=== PATIENT | male | born 1955 | race Caucasian/White ===

== ENCOUNTER 2022-11-09 08:06 | Outpatient (OUT) | payer MEDICARE, SELFPAY | END 2022-11-09 08:07 | LOC: LAB 08:11 | PROVIDERS: PCP Internal Medicine | DX: N40.1 Benign prostatic hyperplasia with lower urinary tract symptoms (principal) | CPT/HCPCS: 36415; 84153 ==

== ENCOUNTER 2023-12-06 08:13 | Outpatient (OUT) | payer MEDICARE, SELFPAY ==
[2023-12-06 10:11] LABS: Prostate Specific Antigen Dx 3.78 ng/mL (<=4.00)
== END 2023-12-06 08:14 | disposition home or self-care (01) ==
LOC: LAB 08:15
PROVIDERS: PCP Internal Medicine; Visit Provider Urology
DX: R97.20 Elevated prostate specific antigen [PSA] (principal)
CPT/HCPCS: 36415; 84153

== ENCOUNTER 2024-02-17 11:52 | Outpatient (OUT) | payer MEDICARE, SELFPAY ==
--- NOTE | 2024-02-17 12:08 | XR_ITS ---
[facility] [place] [id number] Patient Name: TAY BEAVERS MRN: [id number] date: 1955 Sex: M Assigned Patient Location: [facility] Current Patient Location: Accession/Order Number: [id number] Exam Date: 02/17/2024 12:02 Report Date: 02/18/2024 09:31 At the request of: MARILOU BEE Procedure: XR lumbar spine 2-3V EXAMINATION: XR lumbar spine 2-3V HISTORY: subacute right lumbar radiculopathy M54.16 COMPARISON: No relevant comparison available. FINDINGS: BONES: 4 mm anterolisthesis of L4 and L5. Moderate to severe degenerative spondylosis and facet osteoarthropathy DISC SPACES: Altered level disc space narrowing with endplate sclerosis and vacuum disks PARASPINOUS: Negative. No paraspinous abnormality is seen. OTHER: Vascular calcifications. Left mid abdominal calcifications, nonspecific XR/XR lumbar spine 2-3V IMPRESSION: Moderate to severe diffuse degenerative changes Electronically authenticated by: DALLIN WHITAKER Date: 02/18/2024 09:31
== END 2024-02-17 11:53 | disposition home or self-care (01) ==
LOC: RAD 11:54
PROVIDERS: PCP Internal Medicine; Visit Provider Internal Medicine
DX: M54.16 Radiculopathy, lumbar region (principal); M43.16 Spondylolisthesis, lumbar region; M51.36 Other intervertebral disc degeneration, lumbar region
CPT/HCPCS: 72100

== ENCOUNTER 2024-06-02 09:17 | Outpatient (OUT) | payer MEDICARE, SELFPAY ==
--- OUTSIDE RECORDS SUMMARY | 2024-06-02 09:37 | XMS_ITS | CCD ---
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 Name Role Phone JACQUELYN ROBERTS Admitting Unavailable JACQUELYN ROBERTS Attending Unavailable ROHIT, DR ZAMARRIPA Primary Care Unavailable KIERAN, DR ROLA Perera Consulting Unavailable JACQUELYN ROBERTS Consulting Unavailable HARDY RECIO, DR SENDY Peñaloza Admitting Unavailmirian DASH JR, DR SENDY Peñaloza Attending Unavailmirian MALIK, DR ZAMARRIPA Primary Care Unavailable HARDY RECIO, DR SENDY Peñaloza Consulting UnavailLUCIO Dennis Primary Care Physician [phone] Negrita Ventura Attending Unavailable JuneeNegrita Admitting Unavailable LueNegrita Attending Unavailable Negrita Ventura Referring Unavailable JuneeNegrita MDayami Admitting Unavailable Negrita Ventura Attending Unavailable Negrita Ventura Referring Unavailable JuneeNegrita MDayami Attending Unavailable Negrita Ventura Attending Unavailable Lucio Malik MD Unavailable [phone] Lucio Malik MD Primary Care Provider Christianne Delgado DO Unavailable CALOS MCCARTNEY Attending Unavailable LARSIA GRACE Attending Unavailable LARISA GRACE Attending Unavailable LARISA GRACE Attending Unavailable LARISA GRACE Referring Unavailable LUCIO MALIK Attending Unavailable CHRISTIANNE DELGADO Attending Unavailable LUCIO MALIK Referring Unavailable JACQUELYN ROBERTS Attending Unavailable LARISA GRACE Attending Unavailable LARISA GRACE Referring Unavailable CHRISTIANNE DELGADO Attending Unavailable LUCIO MALIK Referring Unavailable Allergies Allergy Classification Reported Allergen(s) Allergy Type Date of Onset Reaction(s) Facility (1 source) Penicillins Drug allergy (disorder) 3 [facility] (7 sources) Penicillin; Translations: [penicillin] Drug Allergy Unknown (qualifier value) [facility] (18 sources) Penicillin V Drug Allergy 1 Unknown [facility] (18 sources) Penicillins Drug Intolerance 0 Anaphylaxis, Rash, Swelling, Unknown [facility] Medications Current Medications Medication Drug Class(es) Dates Sig (Normalized) Sig (Original) aspirin 81 mg oral tablet (6 sources) Platelet Aggregation Inhibitor, Nonsteroidal Anti-inflammatory Drug Start: 02-09-2019 take 81 mg by mouth once daily aspirin 81 mg, Oral, Daily, Refills(s) 0, Prophylaxis Start Date: 02/09/19 Status: Ordered Start: 02-09-2019 aspirin Refill s(s) 0 Start Date: 02/09/19 Status: Ordered 12 hr buPROPion hydrochloride 150 mg extended release oral tablet (20 sources) Aminoketone Start: 10-28-2023 buPROPion SR ( Wellbutrin SR) 150 MG 12 hr tablet Indications: Depression, unspecified depression type (CMS/HCC) TAKE 1 TABLET DAILY 100 tablet 3 10/28/2023 Active Start: 02-09-2019 take 1 mg by mouth twice daily buPROPion 150 mg ER Tab mg tab(s), Oral, BID, Refills(s) 0 Start Date: 02/09/19 Status: Ordered ciprofloxacin 500 mg oral tablet (1 source) Quinolone Antimicrobial Start: 10-21-2021 take 1 tablet by mouth once daily Cipro 500 mg Tab 500 mg = 1 tab(s), Oral, Daily, Start 1 day prior to procedure, # 2 tab(s), Refills(s) 0, Pharmacy: [facility]/pharmacy #[id number], 177.8, cm, 10/21/21 8:41:00 EDT, Height/Length Dosing, 105.1, kg, 10/21/21 8:41:00 EDT, Weight Dosing Start Date: 10/21/21 Status: Ordered diazePAM 10 mg oral tablet (2 sources) Benzodiazepine Start: 03-26-2023 Valium 10 mg Tab 10 mg = 1 tab(s), Oral, Once, PRN for anxiety, Take 30 minutes prior to procedure, # 1 tab(s), Refills(s) 0, Pharmacy: [facility]/pharmacy #[id number], 177.8, cm, 10/13/23 14:32:00 EDT, Height/Length Dosing, 99.5, kg, 11/18/22 8:07:00 EDT, Weight Dosing Start Date: 03/26/23 Status: Ordered dicyclomine hydrochloride 10 mg oral capsule (20 sources) Anticholinergic Start: 02-08-2024 dicyclomine (Bentyl) 10 MG capsule Indications: Irritable bowel syndrome, unspecified type TAKE 1 CAPSULE THREE TIMES A DAY 270 capsule 02/08/2024 Active Start: 01-11-2023 dicyclomine (B entyl) 10 MG capsule Indications: Irritable bowel syndrome, unspecified type TAKE 1 CAPSULE THREE TIMES A DAY 270 capsule 3 01/11/2023 Active Start: 02-09-2019 take 1 mg by mouth f our times daily dicyclomine 10 mg Cap mg cap(s), Oral, QID, Refills(s) 0 Start Date: 02/09/19 Status: Ordered irbesartan 150 mg oral tablet (20 sources) Angiotensin 2 Receptor Ventura Start: 02-08-2024 irbesartan (Avapro) 150 MG tablet Indications: Benign essential hypertension (CMS/HCC) TAKE 1 TABLET DAILY 90 tablet 02/08/2024 Active Start: 11-17-2022 irbesartan (Av apro) 150 MG tablet Indications: Benign essential hypertension (CMS/HCC) TAKE 1 TABLET DAILY 100 tablet 4 11/17/2022 Active Start: 10-24-2020 take 1 mg by mouth once daily irbesartan 75 mg Tab mg tab(s), Oral, Daily, Refills(s) 0 Start Date: 10/24/20 Status: Ordered 120 actuat mometasone furoate 0.1 mg/actuat metered dose inhaler (6 sources) Corticosteroid Start: 02-09-2019 Asmanex HFA 10 0 mcg/inh inhalation aerosol Inhalation, BID, Refills(s) 0 Start Date: 02/09/19 Status: Ordered Start: 02-09-2019 Asmanex HFA 10 0 mcg/inh inhalation aerosol Inhalation, BID, Refills(s) 0 Start Date: 02/09/19 Status: Ordered omeprazole 40 mg delayed release oral capsule (20 sources) Proton Pump Inhibitor Start: 02-08-2024 omeprazole (PriLOSEC ) [address] capsule Indications: Gastroesophageal reflux disease, unspecified whether esophagitis present TAKE 1 CAPSULE DAILY 90 capsule 02/08/2024 Active Start: 11-17-2022 omeprazole (Pr iLOSEC) [address] capsule Indications: Gastroesophageal reflux disease, unspecified whether esophagitis present TAKE 1 CAPSULE DAILY 100 capsule 4 11/17/2022 Active Start: 02-09-2019 take 40 mg by mouth once daily omeprazole 40 mg, Oral, Daily, Refills(s) 0 Start Date: 02/09/19 Status: Ordered Start: 02-09-2019 omeprazole Ora l, Daily, Refills(s) 0 Start Date: 02/09/19 Status: Ordered One-A-Day Men's Health Formula oral tablet (6 sources) Start: 02-09-2019 take 1 tablet by mouth once daily One-A-Day Men's Health Formula oral tablet tab(s), Oral, Daily, Refill(s) 0 Start Date: 02/09/19 Status: Ordered tamsulosin hydrochloride 0.4 mg oral capsule (20 sources) alpha-Adrenergi c Ventura Start: 02-08-2024 tamsulosin (Flomax) 0.4 MG 24 hr capsule Indications: Benign prostatic hyperplasia with urinary obstruction TAKE 2 CAPSULES ONCE DAILY 180 capsule 02/08/2024 Active Start: 11-18-2022 tamsulosin (Fl omax) 0.4 MG 24 hr capsule Indications: Benign prostatic hyperplasia with urinary obstruction TAKE 2 CAPSULES ONCE DAILY 180 capsule 3 11/18/2022 Active Start: 02-09-2019 take 1 mg by mouth twice daily tamsulosin 0.4 mg Cap mg cap(s), Oral, BID, Refills(s) 0 Start Date: 02/09/19 Status: Ordered Start: 02-09-2019 take 1 mg by mouth once daily tamsulosin 0.4 mg Cap mg cap(s), Oral, Daily, Refills(s) 0 Start Date: 02/09/19 Status: Ordered Completed/Discontinued Medications Medication Drug Class(es) Dates Sig (Normalized) Sig (Original) 1 ml methylPREDNISolone acetate 40 mg/ml injection (4 sources) Corticosteroid Start: 4 End: methylPREDNISolone acetate (DEPO-Medrol) injection 40 mg Start: 04-05-2024 End: 04-05-2024 40 mg, Intra-articular, Once PRN Procedure, Starting on Wed04/05/24 at 0821, For 1 dose Problems Active Problems Problem Classification Problem Date Documented Da te Episodic/Chronic Acquired foot deformities (6 sources) Right foot drop; Translations: [Foot drop, right foot] 04-11-2024 Episodic Chronic obstructive pulmonary disease and bronchiectasis (18 sources) Chronic obstructive lung disease; Translations: [Chronic obstructive pulmonary disease, unspecified] Onset: 3 11-17-2022 Chronic Diverticulosis and diverticulitis (18 sources) Diverticular disease; Translations: [Diverticulosis of intestine, part unspecified, without perforation or abscess without bleeding] Onset: 3 11-17-2022 Chronic Esophageal disorders (20 sources) Eosinophilic esophagitis; Translations: [Eosinophilic esophagitis] Onset: 3 11-17-2022 Chronic Essential hypertension (20 sources) Hypertensive disorder; Translations: [Benign essential hypertension] Onset: 3 12-06-2018 Chronic Hyperplasia of prostate (20 sources) Benign prostatic hyperplasia with lower urinary tract symptoms; Translations: [Benign prostatic hypertrophy with outflow obstruction] Onset: 2 Chronic Malaise and fatigue (2 sources) Asthenia; Translations: [Weakness] 04-19-2024 Episodic Osteoarthritis (20 sources) Arthritis; Translations: [Arthritis of left acromioclavicular joint] Onset: 3 12-06-2018 Chronic Other connective tissue disease (18 sources) Artificial knee joint present; Translations: [Presence of unspecified artificial knee joint] Onset: 3 11-17-2022 Chronic Other connective tissue disease (20 sources) History of prosthetic unicompartmental arthroplasty of left knee; Translations: [Presence of left artificial knee joint] Onset: 3 11-17-2022 Chronic Other connective tissue disease (4 sources) Trochanteric bursitis of left hip; Translations: [Trochanteric bursitis, left hip] 04-05-2024 Episodic Other connective tissue disease (2 sources) Pain in right foot; Translations: [Pain in right foot] 04-11-2024 Episodic Other diseases of kidney and ureters (3 sources) Urinary tract obstruction; Translations: [Other obstructive and reflux uropathy] Onset: 2 Episodic Other gastrointestinal disorders (18 sources) Irritable bowel syndrome; Translations: [Irritable bowel syndrome without diarrhea] Onset: 3 11-17-2022 Chronic Other male genital disorders (2 sources) Impotence 04-28-2023 Chronic Other male genital disorders (1 source) Hydrocele of testis; Translations: [Hydrocele, unspecified] Onset: 4 Episodic Other male genital disorders (1 source) Disorder of male genital organ 12-08-2023 Episodic Other nervous system disorders (4 sources) Polyneuropathy; Translations: [Polyneuropathy, unspecified] 03-24-2024 Chronic Other nervous system disorders (1 source) Idiopathic peripheral neuropathy; Translations: [Hereditary and idiopathic neuropathy, unspecified] 02-23-2024 Chronic Other nervous system disorders (3 sources) Numbness and tingling sensation of skin; Translations: [Anesthesia of skin] 04-19-2024 Episodic Other non-traumatic joint disorders (4 sources) Other specific joint derangements of right shoulder, not elsewhere classified; Translations: [OTH SPEC JOINT DERANG RT SHLDR NEC] Onset: 1 Chronic Other non-traumatic joint disorders (18 sources) Derangement of left shoulder joint; Translations: [Other specific joint derangements of left shoulder, not elsewhere classified] Onset: 3 11-17-2022 Chronic Other non-traumatic joint disorders (18 sources) Derangement of right shoulder joint; Translations: [Other specific joint derangements of right shoulder, not elsewhere classified] Onset: 3 11-17-2022 Chronic Other non-traumatic joint disorders (2 sources) Hip pain; Translations: [Pain in left hip] 04-03-2024 Episodic Regional enteritis and ulcerative colitis (18 sources) Chronic ulcerative proctitis; Translations: [Ulcerative (chronic) proctitis without complications] Onset: 3 11-17-2022 Chronic Screening and history of mental health and substance abuse codes (6 sources) Ex-smoker 02-09-2019 Episodic Spondylosis; intervertebral disc disorders; other back problems (18 sources) Lumbar arthritis; Translations: [Spondylosis without myelopathy or radiculopathy, lumbar region] Onset: 06-2011-17-2022 Chronic Spondylosis; intervertebral disc disorders; other back problems (3 sources) Lumbar radiculopathy; Translations: [Radiculopathy, lumbar region] 02-09-2024 Episodic Sprains and strains (2 sources) Unspecified sprain of right lesser toe(s), initial encounter; Translations: [Sprain of foot, unspecified site] 04-11-2024 Episodic Unclassified (5 sources) Finding of sensation of bladder 11-18-2022 Unclassified (2 sources) Patient encounter status 04-28-2023 Past or Other Problems Problem Classification Problem Date Documented Date Episodic/Chronic Calculus of urinary tract (20 sources) Kidney stone; Translations: [Calculus of kidney] Onset: 11-17-2022 12-06-2018 Episodic Esophageal disorders (18 sources) Spastic disorder of smooth muscle segment of esophagus; Translations: [Achalasia of cardia] Onset: 11-17-2022 11-17-2022 Episodic Genitourinary symptoms and ill-defined conditions (20 sources) Poor urinary stream; Translations: [Nocturia] Onset: 10-06-2021 Episodic Mood disorders (18 sources) Mood disorders Onset: 04-02-2023 04-02-2023 Noninfectious gastroenteritis (18 sources) Noninfectious colitis; Translations: [Noninfective gastroenteritis and colitis, unspecified] Onset: 11-17-2022 11-17-2022 Episodic Other acquired deformities (20 sources) Lumbar spondylolisthesis; Translations: [Spondylolisthesis, lumbar region] Onset: 11-17-2022 11-17-2022 Episodic Other connective tissue disease (18 sources) Full thickness rotator cuff tear; Translations: [Complete rotator cuff tear or rupture of right shoulder, not specified as traumatic] Onset: 11-17-2022 11-17-2022 Episodic Other diseases of veins and lymphatics (18 sources) Peripheral venous insufficiency; Translations: [Venous insufficiency (chronic) (peripheral)] Onset: 11-17-2022 11-17-2022 Episodic Other non-epithelial cancer of skin (18 sources) Squamous cell carcinoma of skin of scalp and neck; Translations: [Malignant neoplasm of head, face, and neck] Onset: 11-17-2022 11-17-2022 Episodic Other screening for suspected conditions (not mental disorders or infectious disease) (20 sources) Elevated prostate specific antigen [PSA]; Translations: [Raised prostate specific antigen] Onset: 10-03-2021 Episodic Results Test Name Value Interpretation Reference Range Facility FOLATE, SERUMon 04-25-2024 Folate [Mass/Vol] 19.8 ng/mL Normal [facility] Comment on above: Result Comment: Refe rence Range Low: <3.4 Borderline: 3.4-5.4 Normal: >5.4 Performed By: #### 9 , 89, 747, 466 #### [facility] [place] [address] Supervisor Payroll: Jono Monroe MD PROTEIN, TOTAL AND PROTEIN E LECTROPHORESISon 04-25-2024 Albumin [Mass/Vol] 4.0 g/dL Normal 3.8-4.8 [facility] Comment on above: Order Comment: FASTI NG:NO FASTING: NO Performed By: #### 9 , 43, 157, 466 #### [facility] [place] [address] Supervisor Payroll: Jono Monroe MD ALPHA 1 GLOBULIN 0.3 g/dL Normal 0.2-0.3 [facility] Comment on above: Order Comment: FASTI NG:NO FASTING: NO Performed By: #### 9 , 86, 757, 466 #### [facility] [place] [address] Supervisor Payroll: Jono Monroe MD ALPHA 2 GLOBULIN 0.7 g/dL Normal 0.5-0.9 [facility] Comment on above: Order Comment: FASTI NG:NO FASTING: NO Performed By: #### 9 , 92, 997, 466 #### [facility] [place] [address] Supervisor Payroll: Jono Monroe MD BETA 1 GLOBULIN 0.4 g/dL Normal 0.4-0.6 [facility] Comment on above: Order Comment: FASTI NG:NO FASTING: NO Performed By: #### 9 , 06, 737, 466 #### [facility] [place] [address] Supervisor Payroll: Jono Monroe MD BETA 2 GLOBULIN 0.4 g/dL Normal 0.2-0.5 [facility] Comment on above: Order Comment: FASTI NG:NO FASTING: NO Performed By: #### 9 27, 899, 747, 466 #### [facility] [place] [address] Supervisor Payroll: Jono Monroe MD GAMMA GLOBULIN 0.8 g/dL Normal 0.8-1.7 [facility] Comment on above: Order Comment: FASTI NG:NO FASTING: NO Performed By: #### 9 27, 899, 747, 466 #### [facility] [place] [address] Supervisor Payroll: Jono Monroe MD INTERPRETATION Normal [facility] Comment on above: Order Comment: FASTI NG:NO FASTING: NO Result Comment: Norm al Serum Protein Electrophoresis Pattern. No abnormal protein bands (M-protein) detected. Performed By: #### 9 27, 89, 747, 466 #### [facility] [place] [address] Supervisor Payroll: Jono Monroe MD Protein [Mass/Vol] 6.5 g/dL Normal 6.1-8.1 [facility] Comment on above: Order Comment: FASTI NG:NO FASTING: NO Performed By: #### 9 27, 89, 747, 466 #### [facility] [place] [address] Supervisor Payroll: Jono Monroe MD TSHon 04-25-2024 TSH Qn 0.85 m[IU]/L Normal 0.40-4.50 [facility] Comment on above: Performed By: #### 9 27, 899, 747, 466 #### [facility] [place] [address] Supervisor Payroll: Jono Monroe MD VITAMIN B12on 04-25-2024 Cobalamin (Vitamin B12) [Mass/Vol] 427 pg/mL Normal 200-1100 [facility] Comment on above: Performed By: #### 9 67, 179, 831, 466 #### [facility] [address] [place] [address] Supervisor Payroll: Jono Monroe MD XR Foot - right 3 [facility] Result: April 11, 2024 x-rays AP lateral and oblique of the right foot demonstrate intact cortices. No definitive fractures detected. No areas of lysis or lytic appearance. Impression: No acute findings on x-rays of the right foot Leon Grace D.O. [facility] Radiology Study observation (narrative) [facility] Panel Informationon 04-05 Jacquelyn Roberts NP 04/05/2024 8:23 AM L Inj/Asp: L greater trochanteric bursa on 04/05/2024 8:21 AM Indications: pain Details: 20 G needle, lateral approach Medications: 40 mg methylPREDNISolone acetate 40 MG/ML Consent was given by the patient. Immediately prior to procedure a time out was called to verify the correct patient, procedure, equipment, administrative support assistant and site/side marked as required. Patient was prepped and draped in the usual sterile fashion. 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 There is narrowing of the medial compartment of the right knee. Impression: Stable appearance of left knee partial replacement and underlying arthritis of the right knee Leon Grace D.O. [facility] hospital Radiology Study observation (narrative) [facility] Screenson 04-29-2023 Screens [id number] Normal [facility] Screens [id number] 0TIFF Normal [facility] Ambulatory Visit Summaryon 1 06-28-2022 Ambulatory Visit Summary TAY ALLISON :1955 Visit Date:04/28/2023 Ambulatory Visit Instructions Your Diagnosis BPH with urinary obstruction Feeling of incomplete bladder emptying Nocturia Urinary urgency Prostate cancer screening Tests Performed Urnls Dip Stick Auto w/o Microscopy POC 63856 Your Care Team Attending Physician - Negrita Ventura MD Primary Care Physician - LUCIO MALIK MD This Is Your Medications List Contact prescribing physician if questions or concerns aspirin buPROPion (buPROPion 150 mg ER Tab) dicyclomine (dicyclomine 10 mg Cap) irbesartan (irbesartan 75 mg Tab) mometasone (Asmanex HFA 100 mcg/inh inhalation aerosol) multivitamin (One-A-Day Men's Health Formula oral tablet) omeprazole [Image Removed: STOP]Stop taking these medications diazepam (Valium 10 mg Tab) tamsulosin (tamsulosin 0.4 mg Cap) Procedures Performed Transrectal biopsy of prostate using ultrasound (US) guidance (06/28/2017), Colonoscopy, Cystoscopy, Tonsillectomy. Discharge Vitals Blood Pressure 138/82 Height 70 in Height 177.8 cm Weight 218.9 lb Weight 99.5 kg BMI 31.47 What to do next Scheduled Follow-Up Appointments Wednesday 8:00 AM EDT With: Negrita Ventura MD Where: [facility] Patient Educationon 04-28-20 23 Patient Education Oncology Prostate Cancer Screening Prostate cancer screening is testing that is done to check for the presence of prostate cancer in men. The prostate gland is a walnut-sized gland that is located below the bladder and in front of the rectum in males. The function of the prostate is to add fluid to semen during ejaculation. Prostate cancer is one of the most common types of cancer in men. Who should have prostate cancer screening? Screening recommendations vary based on age and other risk factors, as well as between the professional organizations who make the recommendations. In general, screening is recommended if: ? You are age 50 to 70 and have an average risk for prostate cancer. You should talk with your health care provider about your need for screening and how often screening should be done. Because most prostate cancers are slow growing and will not cause , screening in this age group is generally reserved for men who have a 10- to 15-year life expectancy. ? You are younger than age 50, and you have these risk factors: ? Having a father, brother, or uncle who has been diagnosed with prostate cancer. The risk is higher if your family member's cancer occurred at an early age or if you have multiple family members with prostate cancer at an early age. ? Being a male who is Black or is of [place] or sub-Saharan descent. In general, screening is not recommended if: ? You are younger than age 40. ? You are between the ages of 40 and 49 and you have no risk factors. ? You are 70 years of age or older. At this age, the risks that screening can cause are greater than the benefits that it may provide. If you are at high risk for prostate cancer, your health care provider may recommend that you have screenings more often or that you start screening at a younger age. How is screening for prostate cancer done? The recommended prostate cancer screening test is a blood test called the prostate-specific antigen (PSA) test. PSA is a protein that is made in the prostate. As you age, your prostate naturally produces more PSA. Abnormally high PSA levels may be caused by: ? Prostate cancer. ? An enlarged prostate that is not caused by cancer (benign prostatic hyperplasia, or BPH). This condition is very common in older men. ? A prostate gland infection (prostatitis) or urinary tract infection. ? Certain medicines such as male hormones (like testosterone) or other medicines that raise testosterone levels. A rectal exam may be done as part of prostate cancer screening to help provide information about the size of your prostate gland. When a rectal exam is performed, it should be done after the PSA level is drawn to avoid any effect on the results. Depending on the PSA results, you may need more tests, such as: ? A physical exam to check the size of your prostate gland, if not done as part of screening. ? Blood and imaging tests. ? A procedure to remove tissue samples from your prostate gland for testing (biopsy). This is the only way to know for certain if you have prostate cancer. What are the benefits of prostate cancer screening? ? Screening can help to identify cancer at an early stage, before symptoms start and when the cancer can be treated more easily. ? There is a small chance that screening may lower your risk of dying from prostate cancer. The chance is small because prostate cancer is a slow-growing cancer, and most men with prostate cancer from a different cause. What are the risks of prostate cancer screening? The main risk of prostate cancer screening is diagnosing and treating prostate cancer that would never have caused any symptoms or problems. This is called overdiagnosisand overtreatment. PSA screening cannot tell you if your PSA is high due to cancer or a different cause. A prostate biopsy is the only procedure to diagnose prostate cancer. Even the results of a biopsy may not tell you if your cancer needs to be treated. Slow-growing prostate cancer may not need any treatment other than monitoring, so diagnosing and treating it may cause unnecessary stress or other side effects. Questions to ask your health care provider ? When should I start prostate cancer screening? ? What is my risk for prostate cancer? ? How often do I need screening? ? What type of screening tests do I need? ? How do I get my test results? ? What do my results mean? ? Do I need treatment? Where to find more information ? [facility] Cancer Society: www.cancer.org ? [employer]: www.auanet.org Contact a health care provider if: ? You have difficulty urinating. ? You have pain when you urinate or ejaculate. ? You have blood in your urine or semen. ? You have pain in your back or in the area of your prostate. Summary ? Prostate cancer is a common type of cancer in men. The prostate gland is located below the bladder and in front of the rectum. This gland adds flu (more content not included)... Normal [facility] Urology Office/Clinic Noteon 04-28-2023 Urology Office/Clinic Note Chief Complaint S/p to Cysto/ TRUS HPI Staff 68 yo male here for 4wk f/u with PVR. S/p Cysto/TRUS 01/04/23 and UroLift 03/29/23. He states these have been a huge difference Had 20Fr coude catheter placed and irrigated after UroLift procedure due to hematuria. Hamilton removed 03/30/23. PVR today 190 Previous Dx: BPH with obstruction, Feeling of incomplete bladder emptying, nocturia, urinary urgency. PCP is to monitor PSA yearly. Last PSA was 11/09/22- 3.3 Taking Tamsulosin 0.4mg bid. He wants to see if he can come off of this IPSS 7 REINA 13 Dysuria: _denies Incomplete bladder emptying: denies Hematuria: denies visible blood Frequency: mornings every 45 minutes, rest of day about every hour Urgency: denies Nocturia: 2x nightly Stream: denies hesitation, normal stream Leaking: _denies Post void dripping: occasionally Wearing pads/ Depends: pad today just for security Urge incontinence: _denies Stress incontinence: denies Incontinence without Sensory Awareness: denies Abdominal pain: denies Flank pain: denies Sexual complaints: denies History of Present Illness Tests reviewed: reviewed UA and PVR. I have reviewed the previous health record information and history for this patient from . I have reviewed and verified the staff HPI to be accurate for this encounter. There have been no associated fever, chills, flank pain, or blood in the urine. Denies any urinary infections since last encounter. Review of Systems PHQ Score Initial Depression Screen Score: 0 SCORE ROS - Provider Constitutional: denies weight loss, denies hot flashes. Eyes: denies eye problems. Gastrointestinal: denies nausea, denies vomiting. Cardiovascular: denies chest pain or angina. Integumentary: no dryness Musculoskeletal: denies musculoskeletal symptoms. ENMT: denies otolaryngeal symptoms. Respiratory: no shortness of breath. Heme/Lymph: denies easy bleeding tendency, denies easy bruising tendency. Psychiatric: no confusion, no anxiety. Genitourinary: See HPI. Physical Exam Vitals & Measurements BP: 138/82 HT: 70 in HT: 177.8 cm WT: 99.5 kg WT: 218.9 lb BMI: 31.47 General Appearance: alert, no distress, well nourished, well developed male. Assessment/Plan 68-year-old male with benign prostatic hyperplasia and bothersome voiding symptoms including obstruction and nocturia here for follow up after Urolift REINA 13(11) - declined tx at this time 1. BPH with urinary obstruction (N40.1: Benign prostatic hyperplasia with lower urinary tract symptoms) S/P TRUS/bx done 06/28/17 - Negative S/p Cysto/TRUS 01/04/23 - Prostate volume 89.2mL UroLift 03/29/23 - 9 implants He states these have been a huge difference, had 20Fr coude catheter placed and irrigated after UroLift procedure due to hematuria. Hamilton removed 03/30/23. IPSS 7(23), QOL 1- pleased UA today shows trace-intact blood and no signs of infections. Overall very happy with results . Currently taking Flomax 0.4mg BID and is doing well overall w/ his urination. Advised pt that he can try to stop taking one tab of the Tamsulosin, and see how he feels for 1-2 weeks and then d/c the second pill. Advised pt that if he feels his urinary sxs returning, then he can start taking the Tamsulosin again. -Timed voiding -Wean off of the Tamsulosin. -Follow up with PVR in 6 mths 2. Feeling of incomplete bladder emptying (R39.14: Feeling of incomplete bladder emptying) PVR 190 (234 ml) Advised pt that he is still not emptying completely but improving. Pt states that he waits about 1-2 hours in the afternoon, more often in the morning when he drinks coffee. Feels emptying, asymptomatically improved -timed voids 3. Nocturia (R35.1: Nocturia) Pt gets up 2x/night Denies lower ext edema or CAMILO Pt states that his nocturia has improved since his UroLift and he is happy with the results. -Cont behavioral modifications 4. Urinary urgency (R39.15: Urgency of urination) Pt states that he voids about every 1-2 hours and his urgency has resolved since his UroLift. 5. Prostate cancer screening (Z12.5: Encounter for screening for malignant neoplasm of prostate) PSA 12/14/18 - 3.62 10/17/19 - 3.07 10/08/20 - 2.93 10/03/21 - 2.69 11/09/22 - 3.30 Pt states that DLS was the one who monitored his PSA. Advised pt that we could continue to check his PSA and if the next PSA is stable then we will have his PCP monitor it. Follow up in 8 mos w/PSA. All questions/concerns were discussed. Pt to call the office if he encounters any issues prior. Pt acknowledges understanding. -Will order PSA I spent 30 minutes today with the patient: reviewing tests in preparation to see and discuss them with the patient, documenting clinical information in the electronic health records, and care coordination. Time was spent performing a medical exam and evaluation, counseling and educating the patient, and ordering medications, tests in caring for the patient. Follow-up With When (more content not included)... [facility] Comment on above: Result Comment: Elec tronically Signed By: Negrita Ventura MD\.br\Date and Time Signed: 04/28/23 10:42 EST\.br\Electronically Co-Signed By: Mary Yi\.br\Date and Time Co-Signed: 04/28/23 10:02 EST Ambulatory Visit Summaryon 1 Ambulatory Visit Summary TAY ALLISON :1955 Visit Date:03/30/2023 Ambulatory Visit Instructions Your Care Team Attending Physician - Negrita Ventura MD Primary Care Physician - LUCIO MALIK MD This Is Your Medications List aspirin buPROPion (buPROPion 150 mg ER Tab) diazepam (Valium 10 mg Tab) dicyclomine (dicyclomine 10 mg Cap) irbesartan (irbesartan 75 mg Tab) mometasone (Asmanex HFA 100 mcg/inh inhalation aerosol) multivitamin (One-A-Day Men's Health Formula oral tablet) omeprazole tamsulosin (tamsulosin 0.4 mg Cap) Procedures Performed Transrectal biopsy of prostate using ultrasound (US) guidance (06/28/2017), Colonoscopy, Tonsillectomy. What to do next Scheduled Follow-Up Appointments Wednesday 9:30 AM EST With: Negrita Ventura MD Where: [facility] Consent for Procedure/Surger yon 03-29-2023 Consent for Procedure/Surgery [id number]. [id number] [facility] Consent for Treatmenton 03-02 Consent for Treatment [id number] 0TIFF Normal [facility] Inpatient Patient Summaryon 03-29-2023 Inpatient Patient Summary [address] [address] Clinical Summary Person Information Name: TAY ALLISON Age: 68 Years : 1955 Sex: Male PCP: LUCIO MALIK MD Marital Status: Race: White Ethnicity: Non- or Language: Gambian Visit Id: Visit Reason: BPH WITH LUTS Speciality: Acuity: Enc Type: Outpatient Med Service: Surgery Arrival: 03/29/2023 07:36:05 Discharge: Dispo Type: Address: [address] [place] [address] [address] [place] [id number] Provider Notes: Diagnosis: BPH with urinary obstruction; Feeling of incomplete bladder emptying; Nocturia; Other obstructive and reflux uropathy Problems Active Feeling of incomplete bladder emptying Urinary urgency Elevated PSA Nocturia BPH with urinary obstruction Former smoker Nephrolithiasis Hypertension Arthritis Microscopic hematuria Smoking Status: Functional Status: Sensory Deficits: History of Falls: Mobility Assistance Prior to Admission: ADLs: Current Level of Assistance for Self-Care/Mobility: Cognitive Status: Allergies penicillin (Unknown) Laboratory or Other Results This Visit (last charted value for your 03/29/2023 visit) No Laboratory or Other Results This Visit Measurements: Height: 177.8 cm Weight: Blood Pressure: Not Valued / Not Valued BMI: Procedures No Procedures Documented Immunizations No Immunizations Documented This Visit Final Med List: acetaminophen-hydrocod one ([place] 325 mg-5 mg oral tablet) 1 Tablets By Mouth every 6 hours as needed for pain for 3 Days. For severe pain. Take 1 tablet 1 hour prior to procedure. Refills: 0. aspirin 81 Milligram By Mouth every day. buPROPion (buPROPion 150 mg ER Tab) By Mouth 2 times a day. diazepam (Valium 10 mg Tab) 1 Tablets By Mouth Once as needed for anxiety. Take 30 minutes prior to procedure. Refills: 0. dicyclomine (dicyclomine 10 mg Cap) By Mouth 4 times a day. irbesartan (irbesartan 75 mg Tab) By Mouth every day. mometasone (Asmanex HFA 100 mcg/inh inhalation aerosol) Inhalation 2 times a day. multivitamin (One-A-Day Men's Health Formula oral tablet) By Mouth every day. omeprazole 40 Milligram By Mouth every day. tamsulosin (tamsulosin 0.4 mg Cap) By Mouth 2 times a day. Care Team Members: Attending Physician: Negrita Ventura MD Consulting Physician: Referring Physician: Negrita Ventura MD Follow up: With: Address: When: Negrita Ventura [address], [address], [employer] [address] [phone] Business (1) Comments: Office will call to schedule follow up in 1-2 days for hamilton removal and voiding trial Patient Education Information: Lue - Urolift Post-Op Instructions (CUSTOM) [facility] IntraOperative Documentson 1 IntraOperative Documents [id number]. [id number] [facility] Main OR Intraoperative Recor don 03-29-2023 Main OR Intraoperative Record IntraOp Document Type FTURO Summary Primary Physician: Negrita Ventura MD Finalized Date/Time: 03/29/23 08:59:57 Pt. Name: TAY ALLISON Anabela Ledesma/Sex: 1955 Male Med Rec #: [id number] Physician: Negrita Ventura MD Financial #: [id number] Pt. Type: O Room/Bed: / Admit/Disch: 03/29/23 07:36:05 - Institution: Case Times FTURO Entry 1 Patient Times In Room 03/29/23 08:13:00 Out Room 03/29/23 08:45:00 Procedure Times Start 03/29/23 08:17:00 Stop 03/29/23 08:37:00 Anesthesia Times Last Modified By: Rosmery Long RN 03/29/23 08:55:34 General Comments: 20F COUDE CATH PLACED. EVANGELINA VILLEGAS Case Attendance FTURO Entry 1 Entry 2 Entry 3 Case Attendee Negrita Ventrua MD, CST, Kimberly A Ethan RN, Rosmery Sims Role Performed Surgeon - Primary Scrub - Primary Civil Drafter - Primary Time In 03/29/23 08:13:00 03/29/23 08:13:00 03/29/23 08:13:00 Time Out 03/29/23 08:45:00 03/29/23 08:45:00 03/29/23 08:45:00 Procedure CYSTOSCOPY LOCAL CYSTOSCOPY LOCAL CYSTOSCOPY LOCAL UROLIFT(.) UROLIFT(.) UROLIFT(.) Comments Last Modified By: Ethan HUTCHINSON, Rosmery Long RN, Rosmery Ya RN 03/29/23 08:55:35 03/29/23 08:55:35 03/29/23 08:55:35 General Comments: MATTHIAS AWAN - UROLIFT REPDayami VILLEGAS RN Surgical Procedures FTURO Entry 1 Procedure Description Procedure CYSTOSCOPY LOCAL UROLIFT Modifiers . Surgeon Description CYSTOSCOPY LOCAL UROLIFT X 9 IMPLANTS Primary Procedure Yes Primary Surgeon Negrita Ventura MD Start 03/29/23 08:17:00 Stop 03/29/23 08:37:00 Anesthesia Type Local Surgical Service Urology Wound Class 2 - Clean-Contaminated Last Modified By: Rosmery Long RN 03/29/23 08:37:31 General Case Data FTURO Pre-Care Text: Classifies surgical wound, implements aseptic technique, initiates traffic control Entry 1 Case Information OR URO 1 FT Case Level None Wound Class 2 - Clean-Contaminated Specialty Urology Preop Diagnosis BPH WITH LUTS Postop Same As Preop Yes Postop Diagnosis BPH WITH LUTS Outcomes Met? Yes Last Modified By: Rosmery Long RN 03/29/23 07:59:05 Post-Care Text: The patient is free from signs and symptoms of infection EU IntraOp - FTURO Pre-Care Text: Implements protective measures prior to operative or invasive procedure, confirms identity before the operative or invasive procedure, verifies operative procedure, surgical site, and laterality Entry 1 EU Perioperative Protocols Procedure(s) CYSTOSCOPY LOCAL Patient Identity Birthday, ID Band UROLIFT(.) Verified (select at Check, Patient least 2): Participation Consents / H and P HandP, Surgery/Procedure Operative Site N/A Verified Consent Marking Verified Surgical Site Yes Laterality Verified Yes Verified Procedure Verified Yes Correct Patient Yes Position Verified Availability Equipment, Implant, Time Out Negrita Ventura MD, Verified (If Medication Participants Rosmery Sarabia CST Applicable) Ethan Moreno RN, Kimberly Y Time Out Complete 03/29/23 08:15:00 Allergies Reviewed? Yes Allergies Reviewed Self/Patient With Body Position Low Lithotomy Prep Area PENIS Prep Agents Betadine Solution Skin. Condition Dry, Warm, Unable to Description UNABLE TO VISUAIIZE DUE Visualize TO PATIENT PARTIALLY CLOTHED Additional None Specimens Collected Vitals - EU Blood Pressure 163/91 Pulse 74 bpm Respirations 18 br/min SPO2 98 % EBL 0 IandO - EU Total Intake 0 mL Total Output 0 mL Outcomes Met? Yes Last Modified By: Rosmery Long RN 03/29/23 08:17:25 Post-Care Text: The patient is free from signs and symptoms of injury caused by extraneous objects Implant Log FTURO Pre-Care Text: Records devices implanted during the operative or invasive procedure Entry 1 Entry 2 Entry 3 Implant/Explant Implant Implant Implant Implant Identification Description UROLIFT 2 SYSTEM UROLIFT 2 SYSTEM UROLIFT 2 SYSTEM Serial Number Lot Number [id number] Application Support Developer [employer]OTRACT NEOTRACT NEOTRACT Catalog ?# [id number] UL2-C Size Expiration Date 12/22/24 10/20/23 11/11/24 Usage Data Implant Site PROSTATE PROSTATE PROSTATE Quantity 1 1 4 Temperature Reconstitution Method Outcomes Met? Yes Yes Yes Last Modified By: Rosmery Long RN, RN, Kimberly Y Barbee RN, Kimberly Y 03/29/23 08:36:53 03/29/23 08:36:53 03/29/23 08:36:53 Entry 4 Entry 5 Entry 6 Implant/Explant Implant Implant Implant Implant Identification Description UROLIFT ATC SYSTEM UROLIFT ATC SYSTEM UROLIFT 2 SYSTEM Serial Number Lot Number [id number] Application Support Developer [employer]OTRA[employer] NEOTRACT NEOTRACT Catalog ?# [id number] UL2-C Size Expiration Date 10/17/23 06/29/23 11/17/24 Usage Data Implant Site PROSTATE PROSTATE PROSTATE Quantity 1 1 1 Temperature Reconstitution Method Outcomes Met? Yes Yes Yes Last Modified By: Rosmery Long RN, RN, Rosmery Long RN (more content not included)... Normal [facility] Main OR Preoperative Recordo n 03-29-2023 Main OR Preoperative Record Holding Area Document Type FTURO Summary Primary Physician: Negrita Ventura MD Finalized Date/Time: 03/29/23 09:03:29 Pt. Name: TAY ALLISON /Sex: 1955 Male Med Rec #: [id number] Physician: Negrita Ventura MD Financial #: [id number] Pt. Type: O Room/Bed: / Admit/Disch: 03/29/23 07:36:05 - Institution: Case Times Holding FTURO Pre-Care Text: Verifies consent for planned procedure, identifies individual values and wishes concerning care, includes family members in perioperative teaching Secures patient's records' belongings, and valuables, maintains patient's dignity and privacy, and maintains patient confidentiality Entry 1 In Holding 03/29/23 07:42:00 Outcomes Met? Yes Last Modified By: Kristen Anglin LPN 03/29/23 07:42:59 Post-Care Text: The patient participates in decisions affecting his or her perioperative plan of care The patient's right to privacy is maintained Surgery Checklist FTURO Entry 1 Patient Birthday, ID Band Procedure Surgical Consent, With Identification: Check, Patient Verification: Patient Participation NPO after Midnight: n/a Date/Time: 03/29/23 07:43:00 Personal Items: Jewelry Personal Items necklace, wedding band, Comment: bilat hearing aids Limitations: hard of hearing Complaints of Pain: No Skin Integrity Intact, [place], Warm, & Dry Vitals - EU Blood Pressure 163/91 Pulse 74 bpm Respirations 18 br/min SPO2 98 % RN Reviewed Yes Last Modified By: Rosmery Long RN 03/29/23 09:03:28 General Comments: Temp 98.2 Finalized By: Rosmery Long RN Document Signatures Signed By: Kristen Anglin LPN 03/29/23 08:04 Rosmery Long RN 03/29/23 09:03 Normal [facility] Operative Reporton 3 Operative Report Patient: TAY ALLISON Age: 68 years Sex: Male : 1955 Associated Diagnoses: None Author: Negrita Ventura MD Procedure Operative Information Details: Date/ Time: 03/29/2023 08:52:00. Pre-Op Dx: BPH w/ LUTS - N40.1. Post-Op Dx: Same. Anesthesia Type: Local. Procedure: Cystoscopy with UroLift Prostatic Urethral Lift, Plus 8 additional implants including 2 ATCs for a total of 9 prostatic urethral lift implants. Complications: None. Risks/Benefits/Informe d Consent: Surgical risks, benefits, details of the procedure have been explained to the patient, Full informed consent has been obtained. Indications: INDICATIONS: 68-year-old male with benign prostatic hyperplasia and bothersome voiding symptoms including obstruction. Specifically, the patient has an IPSS of 23, post-void residual volume (PVR) of 234 ml, and serum PSA level of 3.3 ng/ml. TRUS ultrasound confirms an 89 gram prostate volume. Office cystoscopy demonstrates severe bilateral lateral lobe obstruction without intravesical ball valve median lobe component, but overall global prostate effect. His symptoms have failed to improve on medical therapy (alpha blockers). After discussion of surgical treatment options, the patient elected a prostatic urethral lift procedure in which permanent transprostatic implants are installed to create a wider channel by which to void. Other surgical alternatives were rejected due to sexual side effects and invasiveness.. Intraoperative Information Procedure: PROCEDURE: Patient received local anesthesia: 10 mg diazepam 45 min prior, 33 cc 2% lidocaine gel to urethra; penile clamp installed for 30 min dwell prior to procedure. Additional 11ml lidocaine gel inserted per urethra after clamp removed and patient prepped/draped in the usual sterile fashion. A 20F cystoscope was inserted into the bladder. The cystoscopy bridge was replaced with a UroLift UL-2 delivery device. The first treatment site was the patient's left side approximately 1.5 cm distal to the bladder neck. The distal tip of the delivery device was then angled anterior laterally approximately 10 degrees at this position to compress the lateral lobe. The trigger was pulled, thereby deploying a needle containing the implant through the prostate. The implant was additionally compressed for total 20 degrees, trigger pulled and needle was then retracted, allowing one end of the implant to be delivered to the capsular surface of the prostate. The implant was then tensioned to assure capsular seating and removal of slack monofilament. The device was then angled back toward midline and slowly advanced proximally (typically 3 to 4 mm) until cystoscopic verification of the monofilament being centered in the delivery bay. The urethral end piece was then affixed to the monofilament thereby tailoring the size of the implant. Excess filament was then severed. The delivery device was then re-advanced into the bladder. The delivery device was then replaced with cystoscope and bridge and the implant location and opening effect was confirmed cystoscopically. The same procedure was then repeated on the right side, and two additional implants were delivered in the mid prostate. ATC Urolift device was placed on the left and right mid lobe given fluffy appearance of tissue. A UL-2 implant was placed on the right and left prostate just proximal to the verumontanum. Cystoscopy then revealed a persistent area of obstruction, and one more implant was delivered in the right mid prostate. A final cystoscopy was conducted first to inspect the location and state of each implant and second, to confirm the presence of a continuous anterior channel was present through the prostatic urethra with irrigation flow turned off. All instruments were removed. The patient's bladder was left full to allow patient to void prior to discharge home. A 20Fr coude hamilton catheter was inserted due to hematuria, 20cc in balloon. The bladder was irrigated until clear. The patient tolerated the procedure well without complication. . Specimens Removed: None. Devices Implanted: 9 implants attempted, 9 seated (2 ATC). Postoperative Information Discharge: The patient tolerated the procedure well and was subsequently discharged home, Office to call for Hamilton removal and voiding trial in 1 to 2 days once urine is clear. PVR in 1 month.. Normal [facility] Comment on above: Result Comment: Elec tronically Signed By: Lorenzo WOODRUFF, Negrita Hdz\.rocio\Date and Time Signed: 03/29/23 09:00 EDT Outpatient Surgery Discharge Instructionon 03-29-2023 Outpatient Surgery Discharge Instruction [address] [address] Patient Discharge Instructions PERSON INFORMATION Name: TAY ALLISON Date of : 1955 Current Date: 03/29/2023 08:46:37 PHYSICIANS Admitting Physician: Negrita Ventura MD Comment: Discharge Diagnosis: BPH with urinary obstruction; Feeling of incomplete bladder emptying; Nocturia; Other obstructive and reflux uropathy TAY ALLISON has been given the following list of follow-up instructions, prescriptions, and patient education materials: IF UNABLE TO CONTACT YOUR PHYSICIAN AND YOU FEEL IT IS AN EMERGENCY, GO TO THE NEAREST EMERGENCY ROOM OR CALL 911 Follow up: With: Address: When: Negrita Ventura [address], [address], [employer] [address] [place] [phone] Business (1) Comments: Office will call to schedule follow up in 1-2 days for hamilton removal and voiding trial Comment: PATIENT EDUCATION INFORMATION Instructions: [facility] [place] [place] Post-Operative Instructions for UroLift After your procedure it is normal to have: Gross Hematuria (blood in the urine) You may even notice blood clots in your urine. A small amount of blood may apppear to be a lot of blood in your urine as it is diluted. Restarting your blood thinner, increased activity and heavy lifting could increase the amount of bleeding. The bleeding may be sporadic (off and on) over the next 2-3 weeks. Ensure you are hydrating to assist in flushing the blood to prevent voiding complications. In the event you are unable to void, please reach out to our office. If the office is closed, you will need to report to the local emergency room. Blood in your semen and stool may be present. The blood in your semen is not harmful to you or your partner. This will resolve with time. Frequency/urgency/burn ing with urination is very common. This is due to irritation from your procedure. These symptoms do not indicate that your procedure was unsuccessful or that there is an infection. Ensure you are hydrating! You may try AZO over the counter as needed for urinary discomfort. Pain/discomfort are normal as well. There has been a non-narcotic prescription sent to your pharmacy. You may alternate this prescription with over the counter Ibuprofen. Your pain and discomfort should improve within a few days. When do I need to call the office? We ask that you reach out to the office if you experience a temperature of 100.4 ? F or higher, excessive urinary bleeding, symptoms of infection, inability to urinate or uncontrolled pain. If the office is closed, you may need to present to the local emergency department. Hamilton catheter If you have a catheter and will remove it at home, you may do so the next day if urine is clear and no longer red/pink in color. If urine is red, wait until clear to remove the catheter. See attached instructions for removal. Postop UroLift Instructions ? Complete your antibiotic as instructed. ? Remain on all your urinary medication until follow up. ? Take your pain madications and AZO as needed. ? Resume any blood thinners 48 hour post procedure. ? Continue to hydrate! ? Minimize your activity for 72-96 hours post procedure. ? If you are prescribed Oxybutynin for bladder spasms, you may take this medication every 8 hours as needed. This medication may cause dry mouth/eyes and constipation. Taking an over the counter stool softener and drinking plenty of water will help with side effects. Hamilton Catheter Removal Your healthcare provider has instructed you to remove your Hamilton catheter. This is a thin, flexible tube that allows urine to drain out of your bladder and into a bag. It is important to properly remove your catheter to prevent infection and other complications. If you have any questions about removing the Hamilton catheter, ask your healthcare provider before trying to remove it. Otherwise, follow the instructions on this sheet. Hamilton Catheter The Hamilton catheter is held in place by a small balloon that is filled with water. To remove the catheter, you must first drain the water from the balloon. This is done using a syringe and the balloon port. This is the opening in the catheter that is not attached to the bag. It allows you to get to the balloon. Instructions for Removing the Catheter Follow the directions closely. Note: If the catheter does not come out with gentle pulling, stop and call your healthcare provider right away. ? Empty the bag of urine if needed. ? Wash your hands with soap and warm water. Dry them well. ? Gather your supplies. This includes a syringe that was given to you by your healthcare provider, a wastebasket, and a towel. ? Put the syringe into the balloon port on the catheter. The syringe fits tightly into the port with a firm push and twist motion. ? Wait as the (more content not included)... Normal [facility] Patient Educationon 03-29-20 23 Patient Education [facility] [place], [place] Post-Operative Instructions for UroLift After your procedure it is normal to have: Gross Hematuria (blood in the urine) You may even notice blood clots in your urine. A small amount of blood may apppear to be a lot of blood in your urine as it is diluted. Restarting your blood thinner, increased activity and heavy lifting could increase the amount of bleeding. The bleeding may be sporadic (off and on) over the next 2-3 weeks. Ensure you are hydrating to assist in flushing the blood to prevent voiding complications. In the event you are unable to void, please reach out to our office. If the office is closed, you will need to report to the local emergency room. Blood in your semen and stool may be present. The blood in your semen is not harmful to you or your partner. This will resolve with time. Frequency/urgency/burn ing with urination is very common. This is due to irritation from your procedure. These symptoms do not indicate that your procedure was unsuccessful or that there is an infection. Ensure you are hydrating! You may try AZO over the counter as needed for urinary discomfort. Pain/discomfort are normal as well. There has been a non-narcotic prescription sent to your pharmacy. You may alternate this prescription with over the counter Ibuprofen. Your pain and discomfort should improve within a few days. When do I need to call the office? We ask that you reach out to the office if you experience a temperature of 100.4 ? F or higher, excessive urinary bleeding, symptoms of infection, inability to urinate or uncontrolled pain. If the office is closed, you may need to present to the local emergency department. Hamilton catheter If you have a catheter and will remove it at home, you may do so the next day if urine is clear and no longer red/pink in color. If urine is red, wait until clear to remove the catheter. See attached instructions for removal. Postop UroLift Instructions ? Complete your antibiotic as instructed. ? Remain on all your urinary medication until follow up. ? Take your pain madications and AZO as needed. ? Resume any blood thinners 48 hour post procedure. ? Continue to hydrate! ? Minimize your activity for 72-96 hours post procedure. ? If you are prescribed Oxybutynin for bladder spasms, you may take this medication every 8 hours as needed. This medication may cause dry mouth/eyes and constipation. Taking an over the counter stool softener and drinking plenty of water will help with side effects. Hamilton Catheter Removal Your healthcare provider has instructed you to remove your Hamilton catheter. This is a thin, flexible tube that allows urine to drain out of your bladder and into a bag. It is important to properly remove your catheter to prevent infection and other complications. If you have any questions about removing the Hamilton catheter, ask your healthcare provider before trying to remove it. Otherwise, follow the instructions on this sheet. Hamilton Catheter The Hamilton catheter is held in place by a small balloon that is filled with water. To remove the catheter, you must first drain the water from the balloon. This is done using a syringe and the balloon port. This is the opening in the catheter that is not attached to the bag. It allows you to get to the balloon. Instructions for Removing the Catheter Follow the directions closely. Note: If the catheter does not come out with gentle pulling, stop and call your healthcare provider right away. ? Empty the bag of urine if needed. ? Wash your hands with soap and warm water. Dry them well. ? Gather your supplies. This includes a syringe that was given to you by your healthcare provider, a wastebasket, and a towel. ? Put the syringe into the balloon port on the catheter. The syringe fits tightly into the port with a firm push and twist motion. ? Wait as the water from the balloon empties into the syringe. Depending on how large the balloon is, you may need to repeat this process several times until all of the water is out of the balloon. ? Once the balloon is emptied, gently pull out the catheter. ? Put the used catheter in the wastebasket. Throw away the syringe. ? Use the towel to wipe up any spilled water or urine if needed. ? Wash your hands again. When to Call Your Healthcare Provider Call the healthcare provider right away if: ? You have a fever of 100.4 ?F (38?C) or higher, or as directed by your healthcare provider. ? You have questions about removing the catheter. ? The catheter does not come out with gentle pulling. ? You cannot urinate within 8 hours of removing the catheter. ? Your belly (abdomen) is painful or bloated ? You have burning pain with urination that lasts for 24 hours. ? You see a lot of blood in your urine. Light bleeding for 24 hours is normal. ? It feels like the bladder is not emptying. Normal [facility] Insurance Correspondenceon 1 Insurance Correspondence [id number] Normal [facility] IntraOperative Documentson 0 01-08-2023 IntraOperative Documents [id number]. 00CD:127 [facility] IntraOperative Documents [id number] 0CD:127 [facility] Consent for Procedure/Surger yon 01-04-2023 Consent for Procedure/Surgery [id number] 0CD:127 [facility] Consent for Treatmenton Consent for Treatment [id number] 0CD:127 [facility] Inpatient Patient Summaryon 01-04-2023 Inpatient Patient Summary [address] [address] Clinical Summary Person Information Name: TAY ALLISON Age: 67 Years : 1955 Sex: Male PCP: LUCIO MALIK MD Marital Status: Race: White Ethnicity: Non- or Language: Gambian Visit Id: Visit Reason: BPH WITH LUTZ WEAK URINE STREAM Speciality: Acuity: Enc Type: Outpatient Med Service: Surgery Arrival: 01/04/2023 07:32:34 Discharge: Dispo Type: Address: [address] [place] [address] [address] [id number] Provider Notes: Diagnosis: BPH with urinary obstruction; Other obstructive and reflux uropathy Problems Active Feeling of incomplete bladder emptying Urinary urgency Elevated PSA Nocturia BPH with urinary obstruction Former smoker Nephrolithiasis Hypertension Arthritis Microscopic hematuria Smoking Status: Functional Status: Sensory Deficits: History of Falls: Mobility Assistance Prior to Admission: ADLs: Current Level of Assistance for Self-Care/Mobility: Cognitive Status: Allergies penicillin (Unknown) Laboratory or Other Results This Visit (last charted value for your 01/04/2023 visit) No Laboratory or Other Results This Visit Measurements: Height: 177.8 cm Weight: Blood Pressure: Not Valued / Not Valued BMI: Procedures No Procedures Documented Immunizations No Immunizations Documented This Visit Final Med List: aspirin 81 Milligram By Mouth every day. buPROPion (buPROPion 150 mg ER Tab) By Mouth 2 times a day. dicyclomine (dicyclomine 10 mg Cap) By Mouth 4 times a day. irbesartan (irbesartan 75 mg Tab) By Mouth every day. mometasone (Asmanex HFA 100 mcg/inh inhalation aerosol) Inhalation 2 times a day. multivitamin (One-A-Day Men's Health Formula oral tablet) By Mouth every day. omeprazole 40 Milligram By Mouth every day. tamsulosin (tamsulosin 0.4 mg Cap) By Mouth 2 times a day. Care Team Members: Attending Physician: Negrita Ventura MD Consulting Physician: Referring Physician: Negrita Ventura MD Follow up: With: Address: When: Negrita Ventura Comments: Call for followup appointment to schedule Urolift Patient Education Information: EU - Cystoscopy Discharge Instructions (CUSTOM) [facility] IntraOperative Documentson 0 01-04-2023 IntraOperative Documents [id number] 0CD:127 [facility] Main OR Intraoperative Recor don 01-04-2023 Main OR Intraoperative Record IntraOp Document Type FTURO Summary Primary Physician: Negrita Ventura MD Finalized Date/Time: 01/04/23 08:36:52 Pt. Name: TAY ALLISON Anabela Mendez./Sex: 1955 Male Med Rec #: [id number] Physician: Negrita Ventura MD Financial #: [id number] Pt. Type: O Room/Bed: / Admit/Disch: 01/04/23 07:32:34 - Institution: Case Times FTURO Entry 1 Patient Times In Room 01/04/23 08:25:00 Out Room 01/04/23 08:50:00 Procedure Times Start 01/04/23 08:30:00 Stop 01/04/23 08:45:00 Anesthesia Times Last Modified By: Regina HUTCHINSON, JOSIAHOR, Cassi 01/04/23 08:36:13 Case Attendance FTURO Entry 1 Entry 2 Entry 3 Case Attendee Lorenzo WOODRUFF, Negrita Tapia RN, CNOR, Cathi Mcnamara Role Performed Surgeon - Primary Civil Drafter - Primary Scrub - Primary Time In 01/04/23 08:25:00 01/04/23 08:25:00 01/04/23 08:25:00 Time Out 01/04/23 08:50:00 01/04/23 08:50:00 01/04/23 08:50:00 Procedure CYSTOSCOPY LOCAL(.) CYSTOSCOPY LOCAL(.) CYSTOSCOPY LOCAL(.) Comments Last Modified By: Regina HUTCHINSON, CNOR, Regina HUTCHINSON, JOSIAHOR, Regina HUTCHINSON, JOSIAHOR, Cassi 01/04/23 Cassi 01/04/23 Cassi 01/04/23 08:36:30 08:36:30 08:36:30 Surgical Procedures FTURO Entry 1 Procedure Description Procedure CYSTOSCOPY LOCAL Modifiers . Surgeon Description CYSTOSCOPY WITH trus Primary Procedure Yes Primary Surgeon Negrita Ventura MD Start 01/04/23 08:30:00 Stop 01/04/23 08:45:00 Anesthesia Type Local Surgical Service Urology Wound Class 3 - Contaminated Last Modified By: Regina HUTCHINSON, JOSIAHORCassi 01/04/23 08:36:31 General Case Data FTURO Pre-Care Text: Classifies surgical wound, implements aseptic technique, initiates traffic control Entry 1 Case Information OR URO 1 FT Case Level None Wound Class 3 - Contaminated Specialty Urology Preop Diagnosis BPH WITH LUTZ WEAK Postop Same As Preop No URINE STREAM Postop Diagnosis BPH WITH LUTZ Outcomes Met? Yes Last Modified By: Regina HUTCHINSON, JOSIAHOR, Cassi 01/04/23 08:36:51 Post-Care Text: The patient is free from signs and symptoms of infection EU IntraOp - FTURO Pre-Care Text: Implements protective measures prior to operative or invasive procedure, confirms identity before the operative or invasive procedure, verifies operative procedure, surgical site, and laterality Entry 1 EU Perioperative Protocols Procedure(s) CYSTOSCOPY LOCAL(.) Patient Identity Birthday, ID Band Verified (select at Check, Patient least 2): Participation Consents / H and P HandP, Surgery/Procedure Operative Site N/A Verified Consent Marking Verified Surgical Site Yes Laterality Verified n/a Verified Procedure Verified Yes Correct Patient Yes Position Verified Availability Equipment, Medication Time Out Lorenzo WOODRUFF, Negrita Hdz, Verified (If Participants TREVON Tapia RN, Applicable) Anders Ye Jessica D Time Out Complete 01/04/23 08:28:00 Allergies Reviewed? Yes Allergies Reviewed Self/Patient With Body Position Supine Prep Area penis Prep Agents Betadine Solution Skin. Condition Unable to Visualize Additional None Specimens Collected Vitals - EU Blood Pressure 145/84 Pulse 68 bpm Respirations SPO2 EBL 0 IandO - EU Total Intake 0 mL Total Output 0 mL Outcomes Met? Yes Last Modified By: TREVON Tapia RN, Ruthann 01/04/23 08:34:49 Post-Care Text: The patient is free from signs and symptoms of injury caused by extraneous objects General Comments: after cyst patient moved to left side for TRUS Sign Out FTURO Entry 1 Before Patient Leaves OR Nurse verbally Yes Nurse verbally n/a confirms with the confirms with the team the name of team that the procedure(s) instrument, sponge, recorded and needle counts are correct (or N/A) Nurse verbally n/a Nurse verbally n/a confirms with the confirms with the team how the team whether there specimen is labeled are any equipment (including patient problems to be name), if applicable addressed Sign Out Complete 01/04/23 08:47:00 Last Modified By: TREVON Tapia RN, Ruthann 01/04/23 08:36:27 Case Comments Finalized By: TREVON Tapia RN, Ruthann Document Signatures Signed By: TREVON Tapia RN, Ruthann 01/04/23 08:36 Normal [facility] Main OR Preoperative Recordo n 01-04-2023 Main OR Preoperative Record Holding Area Document Type FTURO Summary Primary Physician: Negrita Ventura MD Finalized Date/Time: 01/04/23 08:29:01 Pt. Name: TAY ALLISON /Sex: 1955 Male Med Rec #: [id number] Physician: Negrita Ventura MD Financial #: [id number] Pt. Type: O Room/Bed: / Admit/Disch: 01/04/23 07:32:34 - Institution: Case Times Holding FTURO Pre-Care Text: Verifies consent for planned procedure, identifies individual values and wishes concerning care, includes family members in perioperative teaching Secures patient's records' belongings, and valuables, maintains patient's dignity and privacy, and maintains patient confidentiality Entry 1 In Holding 01/04/23 07:40:00 Outcomes Met? Yes Last Modified By: Kristen Anglin LPN 01/04/23 07:40:09 Post-Care Text: The patient participates in decisions affecting his or her perioperative plan of care The patient's right to privacy is maintained Surgery Checklist FTURO Entry 1 Patient Birthday, ID Band Procedure Surgical Consent, With Identification: Check, Patient Verification: Patient Participation NPO after Midnight: n/a Date/Time: 01/04/23 07:42:00 Personal Items: Jewelry Personal Items weding band, bilat Comment: hearing aids Limitations: hard of hearing Complaints of Pain: No Skin Integrity Intact, [place], Warm, & Dry Vitals - EU Blood Pressure 145/84 Pulse 67 bpm Respirations 16 br/min SPO2 97 % RN Reviewed Yes Last Modified By: TREVON Tapia RN, Ruthann 01/04/23 08:28:59 General Comments: Temp 97.3 Finalized By: TREVON Tapia RN, Ruthann Document Signatures Signed By: Kristen Anglin LPN 01/04/23 07:45 Kristen Anglin LPN 01/04/23 07:45 TREVON Tapia RN, Ruthann 01/04/23 08:29 Normal [facility] Operative Reporton 3 Operative Report Patient: TAY ALLIOSN Age: 67 years Sex: Male : 1955 Associated Diagnoses: None Author: Negrita Ventura MD Procedure Operative Information Details: Date/ Time: 01/04/2023 08:43:00. Pre-Op Dx: BPH with urinary obstruction ([id number] N40.1, Discharge, Medical). Post-Op Dx: Same. Anesthesia Type: Local. Procedure: Local Cystoscopy, 2. Transrectal ultrasound of prostate. Complications: None. Risks/Benefits/Informe d Consent: Surgical risks, benefits, details of the procedure have been explained to the patient, Full informed consent has been obtained. Intraoperative Information Prepped: Patient is brought back to the endoscopy suite, Patient is placed in supine position, Patient prepped in the usual fashion with Betadine solution, 2% Xylocaine Jelly is placed per Urethra, After waiting several minutes the Cystoscope is introduced. The Urethra is: Normal. The Prostatic Urethra is: Obstructed, Severe bilobar hypertrophy with mild global mass effect into bladder. Urethral length 5 cm, tall prostate, Tiny calcifications around apical prostatic urethra. The Bladder is: Normal, Trabeculated Mild (1), No bladder tumors, lesions, stones or foreign bodies.. The ureteral orifices: Show efflux of clear urine. Devices Implanted: None. Removal: Cystoscope is removed, The patient tolerated it well. The patient was placed in a lateral decubitus position with the left side down. Lidocaine gel was inserted per rectum and a transrectal ultrasound probe was inserted without difficulty. The prostate was measured in three dimensions with a calculated volume of 89.2mL. This included width 5.9 cm, height of 4.5 cm, and length of 6.4 cm. There were no significant hypo or hyperechoic lesions within the prostate. The seminal vesicles were visualized bilaterally. These were normal in size, shape and echotexture. The patient tolerated the procedure well and there were no complications.. Postoperative Information Discharge: Follow up arranged. Main issue is noctuira frequency despite behavioral modifiations and medication timing. Again, reviewed outlet procedures. Pt a candidate for either minimally invasive procedure. He would like to proceed with Urolift in the fall pending his schedule. He will call to schedule. . [facility] Comment on above: Result Comment: Elec tronically Signed By: Negrita Ventura MD\.br\Date and Time Signed: 01/04/23 08:49 EDT Outpatient Surgery Discharge Instructionon 01-04-2023 Outpatient Surgery Discharge Instruction [id number] 0CD:127 Normal [facility] Outpatient Surgery Discharge Instruction [place] [id number] Patient Discharge Instructions PERSON INFORMATION Name: TAY ALLISON Date of : 1955 Current Date: 01/04/2023 08:42:50 PHYSICIANS Admitting Physician: Negrita Ventura MD Comment: Discharge Diagnosis: BPH with urinary obstruction; Other obstructive and reflux uropathy TAY ALLISON has been given the following list of follow-up instructions, prescriptions, and patient education materials: IF UNABLE TO CONTACT YOUR PHYSICIAN AND YOU FEEL IT IS AN EMERGENCY, GO TO THE NEAREST EMERGENCY ROOM OR CALL 911 Follow up: With: Address: When: Negrita Ventura Comments: Call for followup appointment to schedule Urolift Comment: PATIENT EDUCATION INFORMATION Instructions: Cystoscopy ? Voiding after the procedure: there may be some pain, burning, urgency, frequency and blood tinged urine following the procedure. These symptoms usually resolve within 2-5 days. Drink the amount of fluid it takes to keep the urine pink to yellow or clear in color. Drinking enough water and fluids will help to ease any discomfort after your procedure. ? If you are having problems that seem out of the ordinary, please call. ? If unable to contact your physician and you feel it is an emergency, go to the nearest emergency room or call 911 ? Diet ? you may resume your normal diet. ? Activity ? you may resume your normal activities ? Call if you have a fever over 100 degrees. I, TAY ALLISON, have received the attached patient education materials/instructions and have verbalized understanding: May we do a follow up call? Yes No I was present when discharge instructions were given Patient Signature Date Clinican/Nurse Signature ___ Date You may receive a survey from [employer] asking you to rate your care experience. Your feedback is important and will help us understand what we do well and how we can improve the quality of care we provide to you, your loved ones and our community. It?s an honor to serve you. Thank you for choosing [facility] Normal [facility] Pre-Certification Formon Pre-Certification Form [id number] 0CD:127 Normal [facility] Complete Blood Counton 10-30 Erythrocyte distribution width (RBC) [Ratio] 12.2 % Normal 11.0-15.0 [facility] [employer] Chief Clerk Comment on above: Performed By: #### L IPD, TSH reflex FT4, CMP, CBC #### [facility] [address] [place] [id number] Hematocrit (Bld) [Volume fraction] 46.0 % Normal 38.5-50.0 [facility] [employer] Chief Clerk Comment on above: Performed By: #### L IPD, TSH reflex FT4, CMP, CBC #### [facility] [address] [id number] Hemoglobin (Bld) [Mass/Vol] 15.5 g/dL Normal 13.0-17.1 [facility] Specialist Comment on above: Performed By: #### L IPD, TSH reflex FT4, CMP, CBC #### [facility] [address] [place], [place] [id number] MCH (RBC) [Entitic mass] 33.5 pg High 27.0-33.0 [facility] Specialist Comment on above: Performed By: #### L IPD, TSH reflex FT4, CMP, CBC #### [facility] [address] [place], [place] [id number] MCHC (RBC) [Mass/Vol] 33.7 g/dL Normal 32.0-36.0 [facility] Comment on above: Performed By: #### L IPD, TSH reflex FT4, CMP, CBC #### [facility] [address] [place], [place] [id number] MCV (RBC) [Entitic vol] 99 fL Normal 80-100 [facility] Specialist Comment on above: Performed By: #### L IPD, TSH reflex FT4, CMP, CBC #### [facility] [address] [place], [place] [id number] Platelet mean volume (Bld) [Entitic vol] 10.00 fL Normal 7.50-12.50 [facility] Comment on above: Performed By: #### L IPD, TSH reflex FT4, CMP, CBC #### [facility] [address] [place], [place] [id number] Platelets (Bld) [#/Vol] 200 10*3/uL Normal 140-400 [facility] Specialist Comment on above: Performed By: #### L IPD, TSH reflex FT4, CMP, CBC #### [facility] [address] [place], [place] [id number] RBC (Bld) [#/Vol] 4.63 10*6/uL Normal 4.20-5.80 [facility] Comment on above: Performed By: #### L IPD, TSH reflex FT4, CMP, CBC #### [facility] [address] [place], [place] [id number] RDW-SD 44.8 fL Normal 37.0-50.0 [facility] [employer] Chief Clerk Comment on above: Performed By: #### L IPD, TSH reflex FT4, CMP, CBC #### [facility] [address] [place], [place] [id number] WBC (Bld) [#/Vol] 5.8 10*3/uL Normal 3.8-11.0 [facility] [employer] Chief Clerk Comment on above: Performed By: #### L IPD, TSH reflex FT4, CMP, CBC #### [facility] [address] [place], [place] [id number] [facility] 10-30-2021 Albumin [Mass/Vol] 4.2 g/dL Normal 3.6-5.1 [facility] [employer] Chief Clerk Comment on above: Performed By: #### L IPD, TSH reflex FT4, CMP, CBC #### [facility] [address] [place], [place] [id number] Albumin/Globulin [Mass ratio] 1.8 {ratio} Normal 1.0-2.5 [facility] [employer] Chief Clerk Comment on above: Performed By: #### L IPD, TSH reflex FT4, CMP, CBC #### [facility] [address] [place], [place] [id number] ALP [Catalytic activity/Vol] 121 U/L Normal 40-129 [facility] [employer] Chief Clerk Comment on above: Performed By: #### L IPD, TSH reflex FT4, CMP, CBC #### [facility] [address] [place], [place] [id number] ALT [Catalytic activity/Vol] 25 U/L Normal 9-46 [facility] [employer] Chief Clerk Comment on above: Result Comment: 04/30 Female reference range changed. Performed By: #### L IPD, TSH reflex FT4, CMP, CBC #### [facility] [address] [place], [place] [id number] Anion gap [Moles/Vol] 15 mmol/L Normal 12-20 [facility] Specialist Comment on above: Result Comment: Effe ctive 06/05/2019 reference range changed. Performed By: #### L IPD, TSH reflex FT4, CMP, CBC #### [facility] [address] [place], [place] [id number] AST [Catalytic activity/Vol] 26 U/L Normal 10-40 [facility] [employer] Chief Clerk Comment on above: Performed By: #### L IPD, TSH reflex FT4, CMP, CBC #### [facility] [address] [place], [place] [id number] Bilirubin [Mass/Vol] 1.00 mg/dL Normal 0.30-1.20 [facility] Comment on above: Performed By: #### L IPD, TSH reflex FT4, CMP, CBC #### [facility] [address] [place], [place] [id number] BUN/CREA 18 Ratio Normal 6-22 [facility] Comment on above: Performed By: #### L IPD, TSH reflex FT4, CMP, CBC #### [facility] [address] [place], [place] [id number] Calcium [Mass/Vol] 9.3 mg/dL Normal 8.6-10.2 [facility] Comment on above: Performed By: #### L IPD, TSH reflex FT4, CMP, CBC #### [facility] [address] [place], [place] [id number] Chloride [Moles/Vol] 106 mmol/L Normal 98-107 [facility] Comment on above: Performed By: #### L IPD, TSH reflex FT4, CMP, CBC #### [facility] [address] [place], [place] [id number] CO2 [Moles/Vol] 24 mmol/L Normal 20-31 [facility] Comment on above: Performed By: #### L IPD, TSH reflex FT4, CMP, CBC #### [facility] [address] [place], [place] [id number] Creatinine [Mass/Vol] 1.0 mg/dL Normal 0.7-1.4 [facility] Comment on above: Performed By: #### L IPD, TSH reflex FT4, CMP, CBC #### [facility] [address] [place], [place] [id number] eGFRAA 91 mL/min/1.73m2 Normal >60 [facility] Specialist Comment on above: Performed By: #### L IPD, TSH reflex FT4, CMP, CBC #### [facility] [address] [place], [place] [id number] eGFRNAA 75 mL/min/1.73m2 Normal >60 [facility] [employer] Chief Clerk Comment on above: Performed By: #### L IPD, TSH reflex FT4, CMP, CBC #### [facility] [address] [place], [place] [id number] Globulin (S) [Mass/Vol] 2.4 g/dL Normal 1.9-3.7 [facility] [employer] Chief Clerk Comment on above: Performed By: #### L IPD, TSH reflex FT4, CMP, CBC #### [facility] [address] [place], [place] [id number] Glucose [Mass/Vol] 99 mg/dL Normal 65-99 [facility] [employer] Chief Clerk Comment on above: Result Comment: For FASTING Glucose --- ADA reference ranges: Normal 65-99 mg/dl Prediabetes 100-125 Diabetes >/= 126 Performed By: #### L IPD, TSH reflex FT4, CMP, CBC #### [facility] [address] [place], [place] [id number] Potassium [Moles/Vol] 4.4 mmol/L Normal 3.5-5.5 [facility] Comment on above: Performed By: #### L IPD, TSH reflex FT4, CMP, CBC #### [facility] [address] [place], [place] [id number] Protein [Mass/Vol] 6.6 g/dL Normal 6.1-8.1 [facility] [employer] Chief Clerk Comment on above: Performed By: #### L IPD, TSH reflex FT4, CMP, CBC #### [facility] [address] [place], [place] [id number] Sodium [Moles/Vol] 141 mmol/L Normal 135-146 [facility] [employer] Chief Clerk Comment on above: Performed By: #### L IPD, TSH reflex FT4, CMP, CBC #### [facility] [address] [place], [place] [id number] Urea nitrogen [Mass/Vol] 18 mg/dL Normal 7-25 [facility] [employer] Chief Clerk Comment on above: Performed By: #### L IPD, TSH reflex FT4, CMP, CBC #### [facility] [address] [place], [place] [id number] Lipid Panelon 10-30-2021 Cholesterol [Mass/Vol] 172 mg/dL Normal 125-200 [facility] Specialist Comment on above: Result Comment: Low risk < 200mg/dL Borderline risk 201-239 mg/dl High risk > or equal to 240 Performed By: #### L IPD, TSH reflex FT4, CMP, CBC #### [facility] [address] [place] [id number] Cholesterol in HDL [Mass/Vol] 61 mg/dL Normal >40 [facility] Specialist Comment on above: Result Comment: High Cardiovascular Risk HDL <40 mg/dL Low Cardiovascular Risk HDL > or equal to 60 mg/dl Performed By: #### L IPD, TSH reflex FT4, CMP, CBC #### [facility] [address] [place], [place] [id number] Cholesterol in LDL [Mass/Vol] 99 mg/dL Normal [facility] Specialist Comment on above: Result Comment: LDL ATP III CLASSIFICATION LDL less than 100 mg/dl Optimal LDL 100-129 mg/dl Near or above optimal LDL 130-159 Borderline high LDL 160-189 High LDL greater than 189 mg/dl Very High Performed By: #### L IPD, TSH reflex FT4, CMP, CBC #### [facility] [address] [place], [place] [id number] Cholesterol in VLDL [Mass/Vol] 12 mg/dL Normal [facility] Specialist Comment on above: Performed By: #### L IPD, TSH reflex FT4, CMP, CBC #### [facility] [address] [place], [place] [id number] Cholesterol.total/Cho lesterol in HDL [Mass ratio] 3 {ratio} Normal [facility] Specialist Comment on above: Performed By: #### L IPD, TSH reflex FT4, CMP, CBC #### [facility] [address] [place] [id number] Triglyceride [Mass/Vol] 60 mg/dL Normal 30-150 [facility] Specialist Comment on above: Result Comment: TRIG ATPIII CLASSIFICATIONS TRIG less than 150 mg/dl Normal TRIG 150-199 mg/dl Borderline High TRIG 200-500 mg/dl High TRIG greather than 500 mg/dl Very High Performed By: #### L IPD, TSH reflex FT4, CMP, CBC #### [facility] [address] [place], [place] [id number] Q - HEPATITIS C ANTIBODY W/R EFLEX TO HCV RNA,QUANT,RT-PCRon 10-30-2021 HEPATITIS C ANTIBODY Non-Reactive Normal NON-REACTIVE [facility] [employer] Chief Clerk Comment on above: Order Comment: [facility] Testing performed at: [employer], [facility], [address] [facility], [address] [place] [address], [address] [place] [address], Analytics Lead: Jono Monroe MD [facility] Collection Date/Time: [facility] Results Received Date/Time: [facility] Reported Date/Time: Performed By: #### [id number] #### [facility] [address] [place] [address] SIGNAL TO CUT-OFF 0.01 Normal <1.00 [facility] [employer] Chief Clerk Comment on above: Order Comment: [facility] Testing performed at: [facility], [facility], [address] [facility], [address] [place] [address], [address] [place] [address], Analytics Lead: Jono Monroe MD [facility] Collection Date/Time: [facility] Results Received Date/Time: [facility] Reported Date/Time: Result Comment: HCV antibody was non-reactive. There is no laboratory evidence of HCV infection. In most cases, no further action is required. However, if recent HCV exposure is suspected, a test for HCV RNA (test code 93348) is suggested. For additional information please refer to http://education.[employer]/faq/WKO70a7 (This link is being provided for informational/ educational purposes only.) Performed By: #### [id number] #### [facility] [address] [place] [address] TSH w/ Reflex to Free T4on 0 10-30-2021 TSH 0.893 uIU/mL Normal 0.400-4.500 [facility] [employer] Chief Clerk Comment on above: Performed By: #### L IPD, TSH reflex FT4, CMP, CBC #### [facility] [address] [place], [place] [id number] MRI SHOULDER RT WO CONon MRI SHOULDER RT WO CON EXAMINATION: MRI SHOULDER RT WO CON HISTORY: Derangement of right shoulder joint ; chronic right shoulder pain, limited range of motion COMPARISON: No relevant comparison available. TECHNIQUE: A variety of imaging planes and parameters were utilized for visualization of suspected pathology. Imaging was performed without contrast. FINDINGS: ROTATOR CUFF REGION CUFF TENDONS: Complete tear and 15 mm retraction of the supraspinatus tendon. CUFF MUSCLES: Normal appearing muscles. DELTOID: Normal. No significant atrophy or tear. LONG BICEPS TENDON: Normal. No abnormal signal, attrition, or tear. LABRUM/BICEPS ANCHOR SUPERIOR: Normal. No visible labral tear or biceps anchor pathology. ANTERIOR/INFERIOR: Normal. No visible tear or attrition. POSTERIOR: Normal. No posterior labrum abnormality. CAPSULE Normal. No visible capsular laxity or thickening. AC JOINT REGION AC JOINT: Moderate osteoarthropathy with mild-moderate narrowing of the underlying coracoacromial arch. AC LIGAMENTS: Normal acromioclavicular ligament. CC LIGAMENTS: Normal coracoclavicular ligaments. ACROMION: Normal horizontal (Type I) configuration. SUBACROMIAL BURSA: Mild effusion. HYALINE CARTILAGE: Normal. No visible cartilage narrowing or focal defect. OTHER BONES: Normal proximal humerus, glenoid, and coracoid. OTHER OBSERVATIONS: Negative. No other significant findings or glenohumeral effusion. IMPRESSION: 1. Complete disruption of the supraspinatus tendon with 15 mm retraction. 2. Moderate degenerative changes of the acromioclavicular joint which may contribute to both findings. Electronically authenticated by: ROLA ALCARAZ Date: 2020-11-27 10:17 Normal [facility] Vital Signs Date Time Vital Sign Value Performing Clinician Facility 04-19-2024 16:24-0500 Body height 177.8 cm Sleep Number DO Work Phone: [facility] 04-19-2024 16:24-0500 Body mass index (BMI) [Ratio] 32.43 kg/m2 Sleep Number DO Work Phone: [facility] 04-19-2024 16:24-0500 Body weight 102.51 kg Xiant Work Phone: [facility] 04-19-2024 16:24-0500 Diastolic blood pressure 88 mm[Hg] Christianne Stuart DO Work Phone: [facility] 04-19-2024 16:24-0500 Heart rate 86 /min Christianne Stuart DO Work Phone: [facility] 04-19-2024 16:24-0500 SaO2% (BldA) [Mass fraction] 98 % Christianne Stuart DO Work Phone: [facility] 04-19-2024 16:24-0500 Systolic blood pressure 144 mm[Hg] Christianne Stuart DO Work Phone: [facility] 02-09-2024 11:35-0400 Body height 180.3 cm Lucio Malik MD Work Phone: [facility] 02-09-2024 11:35-0400 Body mass index (BMI) [Ratio] 31.38 kg/m2 Lucio Malik MD Work Phone: [facility] 02-09-2024 11:35-0400 Body weight 102.06 kg Lucio Malik MD Work Phone: [facility] 02-09-2024 11:35-0400 Diastolic blood pressure 74 mm[Hg] Lucio Malik MD Work Phone: [facility] 02-09-2024 11:35-0400 Heart rate 76 /min Lucio Malik MD Work Phone: [facility] 02-09-2024 11:35-0400 SaO2% (BldA) [Mass fraction] 97 % Lucio Malik MD Work Phone: [facility] 02-09-2024 11:35-0400 Systolic blood pressure 132 mm[Hg] Lucio Malik MD Work Phone: [facility] 12-08-2023 08:04-0400 Blood Pressure Location Negrita Lorenzo [facility] 12-08-2023 08:04-0400 Diastolic blood pressure 84 mm[Hg] Negrita Lue [facility] 12-08-2023 08:04-0400 Heart rate 73 /min Negrita Lue [facility] 12-08-2023 08:04-0400 Respiratory rate 16 /min Negrita Lue [facility] 12-08-2023 08:04-0400 Systolic blood pressure 128 mm[Hg] Negrita Lue [facility] 04-28-2023 09:43-0500 Diastolic blood pressure 82 mm[Hg] Negrita Lue [facility] 04-28-2023 09:43-0500 Mean blood pressure 101 mm[Hg] Negrita Lue [facility] 04-28-2023 09:43-0500 Systolic blood pressure 138 mm[Hg] Negrita Lue [facility] 04-28-2023 09:24-0500 Blood Pressure Location Negrita Lue [facility] 04-28-2023 09:24-0500 Diastolic blood pressure 88 mm[Hg] Negrita Lue [facility] 04-28-2023 09:24-0500 Systolic blood pressure 144 mm[Hg] Negrita Lue [facility] 10-21-2021 08:37-0400 Blood Pressure Location Sendy Dash Jr. [facility] 10-21-2021 08:37-0400 Diastolic blood pressure 103 mm[Hg] Sendy Dash Jr. [facility] 10-21-2021 08:37-0400 Heart rate 78 /min Sendy Dash Jr. [facility] 10-21-2021 08:37-0400 Respiratory rate 16 /min Sendy Dash Jr. [facility] 10-21-2021 08:37-0400 Systolic blood pressure 143 mm[Hg] Sendy Dash Jr. [facility] Encounters Encounter Date Encounter Type Care Provider Facility Start: 04-19-2024 End: 04-19-2024 Office outpatient new 45 minutes Christianne Stuart DO Work Phone: [facility] [address] [facility] Comment on above: Right foot drop (Marii louie Dx); Polyneuropathy; Weakness; Numbness and tingling Start: 04-19-2024 End: 04-19-2024 ambulatory CHRISTIANNE DELGADO Not Available Start: 04-19-2024 End: 04-19-2024 Bamboo flowsheet Christianne Stuart DO [facility] Start: 04-19-2024 End: 04-19-2024 Bamboo flowsheet Christianne Stuart DO Work [facility]: [facility] Start: 04-11-2024 End: 04-11-2024 Bamboo flowsheet Larisa Grace DO Work Phone: [facility] Start: 04-11-2024 End: 04-11-2024 Bamboo flowsheet Larisa Grace DO Work Phone: [facility] Start: 04-11-2024 End: 04-11-2024 Office outpatient visit 10 minutes Larisa Grace DO Work Phone: [facility] Comment on above: Foot pain, right (Pr imary Dx); Foot drop, right foot; Sprain of fifth toe of right foot, initial encounter; Right foot drop Start: 04-11-2024 End: 04-11-2024 ambulatory LARISA GRACE Not Available Start: 04-05-2024 End: 04-05-2024 Bamboo flowsheet Jacquelyn Roberts INSTRUCTIONAL DESIGN SPECIALIST Work Phone: [facility] Start: 04-05-2024 End: 04-05-2024 Bamboo flowsheet Jacquelyn Concepcion Apling INSTRUCTIONAL DESIGN SPECIALIST Work Phone: [facility] Start: 04-05-2024 End: 04-05-2024 Office outpatient visit 25 minutes Jacquelyn Roberts INSTRUCTIONAL DESIGN SPECIALIST Work Phone: [facility] Comment on above: Left hip pain (Prima ry Dx); Trochanteric bursitis of left hip Start: 04-05-2024 End: 04-05-2024 ambulatory JACQUELYN Concepcion APLING Not Available Start: 02-23-2024 End: 02-23-2024 Bamboo flowsheet Christianne Stuart DO Work Phone: [facility] [address] Start: 02-23-2024 End: 02-23-2024 Bamboo flowsheet Christianne Stuart DO Work Phone: [employer] [address] Start: 02-23-2024 End: 02-23-2024 Patient encounter procedure Christianne Stuart DO Work Phone: [facility] [address] Comment on above: Idiopathic periphera l neuropathy (Primary Dx); Subacute right lumbar radiculopathy; Spondylolisthesis of lumbar region; Numbness and tingling Start: 02-23-2024 End: 02-23-2024 ambulatory CHRISTIANNE DELGADO Not Available Start: 02-09-2024 End: 02-09-2024 Bamboo flowsheet Lucio Malik MD Work Phone: [facility] Start: 02-09-2024 End: 02-09-2024 Bamboo flowsheet Lucio Malik MD Work Phone: [facility] Start: 02-09-2024 End: 03-24-2024 Telephone encounter Lucio Malik MD Work Phone: [facility] Comment on above: call with results... . Start: 02-09-2024 End: 02-09-2024 Office outpatient visit 15 minutes Lucio Malik MD Work Phone: [facility] Comment on above: Subacute right lumba r radiculopathy (Primary Dx); Spondylolisthesis of lumbar region Start: 02-09-2024 End: 02-09-2024 ambulatory LUCIO MALIK Not Available Start: 02-01-2024 End: 02-01-2024 Bamboo flowsheet Larisa Grace DO Work Phone: [facility] Start: 02-01-2024 End: 02-01-2024 Bamboo flowsheet Larisa Grace DO Work Phone: [facility] Start: 02-01-2024 End: 02-01-2024 Office outpatient visit 10 minutes Larisa Grace DO Work Phone: [facility] Comment on above: Primary osteoarthrit is of left knee (Primary Dx); Status post left unicompartmental knee replacement Start: 02-01-2024 End: 02-01-2024 ambulatory LARISA GRACE Not Available Start: 12-08-2023 ambulatory Negrita Ventura Facility:[facility] Start: 12-08-2023 End: 12-08-2023 Patient encounter procedure Negrita Ventura [facility] Start: 11-30-2023 End: 11-30-2023 ambulatory LARISA GRACE Not Available Start: 11-23-2023 End: 11-23-2023 ambulatory LARISA GRACE Not Available Start: 06-10-2023 End: 06-10-2023 ambulatory CALOS MCCARTNEY Not Available Start: 04-28-2023 End: 04-28-2023 ambulatory Negrita Johnson. Junee Facility:[facility] Start: 04-28-2023 End: 04-28-2023 Patient encounter procedure Negrita Ventura [facility] Start: 03-30-2023 End: 03-30-2023 ambulatory Negrita Watkinse Facility:[facility] Start: 03-30-2023 End: 03-30-2023 Patient encounter procedure Negrita Johnson. Lorenzo [facility] Start: 03-29-2023 End: 03-29-2023 ambulatory Negrita [place]se Facility[facility] Start: 03-29-2023 End: 03-29-2023 Patient encounter procedure Negrita Ventura [facility] Start: 01-04-2023 End: 01-04-2023 ambulatory Negrita Johnson. Lorenzo Facility:[facility] Start: 01-04-2023 End: 01-04-2023 Patient encounter procedure Negrita Ventura [facility] Start: 10-21-2021 End: 10-21-2021 Patient encounter procedure Sendy Dash Jr. [facility] Start: 10-03-2021 End: 10-04-[address] SENDY DASH JR Facility: Start: 11-27-2020 End: 11-28-2020 ambulatory JACQUELYN ROBERTS Facility: Procedures Date Procedure Procedure Detail Performing Clinician Start: 04-11-2024 Radex foot complete minimum 3 views Larisa Grace DO Work Phone: Start: 04-05-2024 Arthrocentesis aspir &/inj major jt/bursa w/o us Jacquelyn Carlene Shantaltwila INSTRUCTIONAL DESIGN SPECIALIST Work Phone: Start: 02-23-2024 End: 02-23-2024 Needle emg ea extremty w/paraspinl area complete Christianne Delgado DO Work Phone: Start: 02-01-2024 Radiologic examinati on knee 1/2 views Larisa Grace DO Work Phone: Start: 10-03-2021 PSA screening JACQUELYN LOPEZ Comment on above: Performed By: #### P SAD #### [facility] [address] [place] [address] Dr. Shola Og Start: 06-28-2017 Transrectal biopsy o f prostate using ultrasound guidance Sendy Dash Jr. Start: 04-27-2016 Colonoscopy Larisa woods DO Work Phone: Colonoscopy Sendy Stock Tonsillectomy Sendy coleman Transurethral cystoscopy Nae Ventura Plan of Treatment Date Care Activity Detail Author Start: 04-27-2026 Screening for malignant neoplasm of colon [facility] Start: 02-06-2025 End: 02-06-2025 Patient encounter procedure 02/06/2025 9:00 AM EDT Office Visit [facility] [address] [place] [id number] Larisa Grace DO [address] [place] [address] [facility] Start: 09-05-2024 End: 09-05-2024 Patient encounter procedure 09/05/2024 8:00 AM EDT Office Visit [facility] [place] [address] [place] [address] Christianne Delgado, DO [address] [place] [address] [facility] [address] [facility] Start: 06-12-2024 End: 06-12-2024 Patient encounter procedure 06/12/2024 8:35 AM EST Office Visit [facility] [address] [place] [address] Calos Mccartney, FLOW SPECIALIST-GLOBAL SAFETY OFFICER [address] [place] [address] [facility] Start: 04-19-2024 End: 04-19-2024 [facility] Comment on above: Polyneuropathy Start: 04-19-2024 End: 04-19-2025 Cobalamin (Vitamin B12) [Mass/volume] in Serum or Plasma Vitamin B12 Lab Routine Polyneuropathy Expected: 04/19/2024 (Approximate), Expires: 04/19/2025 [facility] Work Phone: Comment on above: Expected: 04/19/2024 (Approximate), Expi res: 04/19/2025 Start: 04-19-2024 End: 04-19-2025 Folate [Mass/volume] in Serum or Plasma Folate Lab Routine Polyneuropathy Expected: 04/19/2024 (Approximate), Expires: 04/19/2025 [facility] Comment on above: Expected: 04/19/2024 (Approximate), Expi res: 04/19/2025 Start: 04-19-2024 End: 04-19-2025 Protein electrophoresis, serum Protein electrophoresis, serum Lab Routine Polyneuropathy Expected: 04/19/2024 (Approximate), Expires: 04/19/2025 [facility] Comment on above: Expected: 04/19/2024 (Approximate), Expi res: 04/19/2025 Start: 04-19-2024 End: 04-19-2025 Thyrotropin [Units/volume] in Serum or Plasma TSH Lab Routine Polyneuropathy Expected: 04/19/2024 (Approximate), Expires: 04/19/2025 [facility] Comment on above: Expected: 04/19/2024 (Approximate), Expi res: 04/19/2025 Start: 04-05-2024 End: 04-05-2024 Patient encounter procedure 04/05/2024 8:00 AM EST [facility] Visit [facility] [address] [place] [address] Jacquelyn Roberts, INSTRUCTIONAL DESIGN SPECIALIST [address] [place] [address] Left hip pain (Primary Dx); Trochanteric bursitis of left hip [facility] Comment on above: Left hip pain (Primary Dx); Trochanteric bursitis of left hip Start: 04-02-2024 Medicare Annual Wellness (AWV) Medicare Annual Wellness (AWV) [facility] Start: 02-23-2024 End: 02-23-2024 Patient encounter procedure 02/23/2024 8:30 AM EDT Procedure Visit [facility] [address] [facility] [address] [place] [address] Christianne Delgado, [address] [place] [address] Arrived [facility] Comment on above: Arrived Start: 02-09-2024 End: 02-08-2025 EMG AND NERVE CONDUCTION STUDY EMG AND NERVE CONDUCTION STUDY Neurology Routine Subacute right lumbar radiculopathy Spondylolisthesis of lumbar region Expected: 02/09/2024 (Approximate), Expires: 02/08/2025 [facility] Comment on above: Expected: 02/09/2024 (Approximate), Expi res: 02/08/2025 Start: 02-09-2024 End: 02-08-2025 XR Lumbar spine 2 or 3 Views XR lumbar spine 2 or 3 views Imaging Routine Subacute right lumbar radiculopathy Spondylolisthesis of lumbar region Expected: 02/09/2024, Expires: 02/08/2025 [facility] Work Phone: Comment on above: Expected: 02/09/2024, Expires: Start: 02-09-2024 End: 02-09-2024 Patient encounter procedure [facility] Comment on above: Arrived Start: 02-01-2024 End: 02-01-2024 Patient encounter procedure 02/01/2024 9:00 AM EDT Office Visit [facility] [address] [facility] [address] [place] [address] Larisa Grace, DO [address] [facility] [address] [place] [address] Primary osteoarthritis of left knee (Primary Dx); Status post left unicompartmental knee replacement [facility] Comment on above: Primary osteoarthritis of left knee (Marii louie Dx); Status post left unicompartmental knee replacement Start: 01-30-2024 Influenza vaccination Influenza Vaccine (#1) [facility] Start: 1955 Screening for malignant neoplasm of colon [facility] Immunizations Immunization Date Immunization Notes Care Provider Fa cility 06-11-2023 tetanus toxoid, redu adrian diphtheria toxoid, and acellular pertussis vaccine, adsorbed Negrita Ventura [facility] 05-27-2022 SARS-CoV-2 (COVID-19 ) [id number] Negrita Ventura [facility] 04-03-2021 SARS-CoV-2 (COVID-19 ) mRNA BNT-162b2 vax Negrita Ventura [facility] Comment on above: Result Comment: 2022: [id number] 08-01-2020 SARS-CoV-2 (COVID-19 ) mRNA BNT-162b2 vax Sendy Dash Jr. [facility] 07-11-2020 SARS-CoV-2 (COVID-19 ) mRNA BNT-162b2 vax Negrita Ventura [facility] Comment on above: Result Comment: 2022: [id number] 03-19-2019 zoster vaccine recombinant Negrita Ventura [facility] 02-07-2019 pneumococcal polysaccharide vaccine, 23 valent Negrita Lue [facility] 06-13-2018 pneumococcal conjuga te vaccine, 13 valent Negrita Lue [facility] 03-04-2015 zoster vaccine, live Negrita L ue [facility] 09-16-2011 tetanus toxoid, redu adrian diphtheria toxoid, and acellular pertussis vaccine, adsorbed Larisa Grace DO Work Phone: [facility] 03-03-2000 Hep A, unspecified formulation Negrita Lue [facility] 03-03-2000 hepatitis A vaccine, unspecified formulation Larisa Grace DO Work Phone: [facility] 03-24-1999 Hep A, unspecified formulation Negrita Lue [facility] 03-24-1999 hepatitis A vaccine, unspecified formulation Larisa Grace DO Work Phone: [facility] Payers Date Payer Category Payer Medicaid AETNA MEDICARE A DVANTAGE [id number] 2021 Medicare AETNA MEDICARE A DVANTAGE AETNA MEDICARE REPLACEMENT [id number] 2021-Present [address] [place] [address] [id number] 1959 Medicare [id number] 1961 Medicare [id number] 1955 Unknown [id number] 1953 Unknown [id number] 2.16.840.1.388721.3.579.2.593 1955 Unknown [id number] 2.16.840.1.231521.3.579.2.727 1953 Unknown [id number] 2.16.840.1.689228.3.579.2.727 1953 Unknown [id number] 2.16.840.1.106014.3.579.2.727 1953 Unknown [id number] 2.16.840.1.494982.3.579.2.727 1953 Unknown [id number] 2.16.840.1.945106.3.579.2.727 1953 Unknown [id number] 2.16.840.1.477718.3.579.2.1259 1953 Unknown [id number] 2.16.840.1.020052.3.579.2.1259 1953 Unknown [id number] 2.16.840.1.902338.3.579.2.1259 1953 Unknown [id number] 2.16.840.1.714646.3.579.2.1259 1953 Unknown [id number] 2.16.840.1.048442.3.579.2.1259 1953 Unknown [id number] 2.16.840.1.734871.3.579.2.9 1953 Unknown [id number] 2.16.840.1.718020.3.579.2.9 1953 Unknown [id number] 2.16.840.1.833612.3.579.2.1258 1953 Unknown [id number] 2.16.840.1.914739.3.579.2.9 1953 Unknown [id number] 2.16.840.1.402574.3.579.2.1258 1955 Unknown [id number] [id number]59 Social History Date Type Detail Facility Start: 10-21-2021 End: 12-08-2023 Tobacco smoking status Never smoked tobacco (finding) [facility] Start: 04-01-2023 End: 04-02-2023 Sex Assigned At Male [facility] Tobacco smoking status Never [facility] Start: 05-20-2023 End: 04-19-2024 Tobacco smoking status TNIS Ex-smoker [facility] Start: 01-29-1973 End: 03-31-1990 History of tobacco use Current smoker [facility] End: 05-31-1989 History of tobacco use Pipe Smoker [facility] Start: 05-20-2023 End: 04-19-2024 Tobacco use and exposure Former smokeless tobacco user [facility] End: 12-01-1998 History of tobacco use Chews Tobacco [facility] Start: 06-10-2023 End: 02-09-2024 Alcoholic beverage intake Current drinker of alcohol (finding) [facility] Start: 04-01-2023 End: 02-09-2024 Alcoholic beverage intake [facility] Within the last year , have you been afraid of your partner or ex-partner? No [facility] Do you belong to any clubs or organizations such as cheondoism groups, unions, fraternal or athletic groups, or school groups? Yes [facility] Are you now , , , , never or living with a partner? [facility] How often to you hav e a drink containing alcohol? 2-3 time sa week [facility] How many standard dr inks containing alcohol do you have on a typical day? 1 or 2 [facility] How often do you hav e 6 or more drinks on 1 occasion? Never [facility] Do you feel stress - tense, restless, nervous, or anxious, or unable to sleep at night because your mind is troubled all the time - these days [OSQ] To some extent [facility] (I/We) worried whemarhta er (my/our) food would run out before (I/we) got money to buy more. Never true [facility] Start: 05-20-2023 Alcohol Comment caffeine: coff ee, soda [facility] Start: 1955 Sex assigned at Not on file [facility] Start: 01-29-1973 End: 03-31-1990 History of tobacco use Cigarette Smoker [facility] Functional Status Date Assessment Result Facility 12-08-2023 Functional Status N/A [facility] 04-28-2023 Functional Status N/A [facility] 03-29-2023 Functional Status N/A [facility] 12-21-2022 Functional Status N/A [facility] Clinical Notes 10-21-2021 to 04-19-2024 Christianne Delgado, - 04/19/2024 4:30 PM Juno Grace, - 04/11/2024 9:00 AM Clarence Roberts NP - 04/05/2024 8:00 AM [facility] Encounter - Lucio Malik MD - 03/24/2024 12:11 PM EDT Note Date & Type Note Facility 04-19-2024 History of Present illness Narrative Images from the original note were not included. Chief Complaint Patient presents with Numbness Subjective Tay Allison, 69 y.o., male seen in Neurology consultation at the request of Dr. Malik. HPI Polyneuropathy - X-Ray lumbar @ [facility]; referral received from Dr Lucio Malik MD The patient states that his is having tingling and numbness bilat legs from his knees down to his toes that is constant. His symptoms started in the right leg 2 years ago. 9 months ago the symptoms started in his left leg. He denies any tingling into his hands. It is more the outside of his legs and then his entire feet. He is not clumsy with his hands. He has issues with balance. He has drop foot on the right. He states that his right foot will catch on the ground when walking. He has fallen twice. He is unable to straighten his big toe on the right. He states that he is able to sleep through the symptoms. He does have to sit for a minute when he gets up before he is comfortable walking due to his feet. He does not spring out of bed as he knows he needs to get his balance. He can feel tighter in the morning after sleeping. He does not have diabetes. He is not aware of any family members with any nerve issues. No swallowing issues. NO diplopia or blurred vision NO loss of control of bowel or bladder. He has not had any chemotherapy. His concern is that he has low back trouble. Dr. Grace did an MRI a while back and was told that he has arthritis in his hips and back. He was told that he likely has a radiculopathy. Past Medical History: Diagnosis Date Actinic keratosis Arthritis Basal cell carcinoma BPH (benign prostatic hyperplasia) Bursitis of hip Chest pain 2011 CTS (carpal tunnel syndrome) Difficulty walking Diverticulosis 2010 Drop foot gait Fracture of hand HL (hearing loss) Hypertension (CMS/HCC) IBS (irritable bowel syndrome) 2010 Lumbosacral disc disease Medial collateral ligament sprain of knee Numbness [place]-Schlatter's disease Renal disease Restless leg syndrome Rotator cuff syndrome Tear of meniscus of knee Tendinitis of knee UC (ulcerative colitis) (CMS/HCC) 2010 Past Surgical History: Procedure Laterality Date CARPAL TUNNEL RELEASE Bilateral COLONOSCOPY 2016 COLONOSCOPY W/ BIOPSIES 2010 Diverticulosis COLONOSCOPY W/ BIOPSIES 2011 Colitis EGD 07/2015 ESOPHAGITIS KNEE ARTHROPLASTY KNEE SURGERY Bilateral Artroscopy left x 3 and right OTHER SURGICAL HISTORY :Nuc Med Leland Perf Scan w/Stress Imaging, Wall Motion Analysis & Ejection Fraction; Disease:Chest Pain PARTIAL KNEE ARTHROPLASTY 01/17/2020 Dr Grace ROTATOR CUFF REPAIR Right 01/15/2021 with implant and Distal Clavicle Resection - Dr. Grace TONSILLECTOMY 195 VASECTOMY 1982 Family History Problem Relation Name Age of Onset Hypertension Mother Yulisa Beth Stroke Mother Yulisa Beth Cancer Father Avi Allison Prostate Depression Father Avi Allison Hypertension Father Avi Allison Stroke Maternal Grandmother nhung kay Melanoma Neg Hx Social History Tobacco Use Smoking status: Former Current packs/day: 0.00 Types: Pipe, Cigarettes Start date: 01/29/1973 Quit date: 03/31/1990 Years since quittin.0 Smokeless tobacco: Former Types: Chew Quit date: 12/01/1998 Substance Use Topics Alcohol use: Yes Alcohol/week: 8.0 standard drinks of alcohol Types: 5 Cans of beer, 3 Shots of liquor per week Comment: caffeine: coffee, soda Allergies: Penicillins and Penicillin v General: No fever or chills HEENT: No nasal congestion or runny nose Pulmonary: No shortness of breath or cough Cardiovascular: No chest pain or palpitations GI: No nausea or vomiting : No dysuria or hematuria Musculoskeletal: No new aches or pains or muscle weakness Infectious: no recurrent fevers or infections Dermatologic: No rashes or skin lesions Neurologic: No new headaches or dizziness Vitals: 04/19/24 1624 BP: 144/88 Pulse: 86 SpO2: 98% Body mass index is 32.43 kg/m . weight: 226 lb Neurologic exam: General: Normal body habitus, cooperative, pleasant Mental status: Awake, alert to person, place and time. Recent and remote memory are intact. Attention and concentration are normal. Fund of knowledge is appropriate for level of education. HEENT: NC/AT Cranial nerves: CN II: Visual araujo full to confrontation. No loss of vision CN III, IV, : pupils equal round and reactive to light. Extraocular movements intact. No ptosis present. CN V: Facial sensation is normal. CN VII: Full and symmetric facial movement. CN VIII: Hearing is normal CN IX and X: Palate elevates symmetrically. CN XI: Shoulder shrug is normal bilaterally. CN XII: Tongue is midline without atrophy or fasciculation. Speech: Clear and fluent no aphasia or dysarthria Pronator drift: Negative bilateral upper extremity Coordination: Intact, no signs of dysmetria Good finger to nose and rapid alternating movements Sensory: Sensation is intact to light, temperature touch throughout four extremities. Decreased vibratory and pinprick sensation in a stocking distribution Motor: LUE 5/5 RUE 5/5 LLE 5/5 proximally 5-/5 distally RLE 5/5 proximially 4+/5 with right foot drop Tone: Physiologic, no tremor, bradykinesia or rigidity DTR: Bilateral Biceps 2/4 Bilateral BR 2/4 Bilateral Patellar trace/4 No spasticity Gait: Mildly unsteady with steppage gait on the right due to foot drop Romberg's positive Review and summary of old records: Assessment/Plan Diagnoses and all orders for this visit: Right foot drop Polyneuropathy - Ambulatory referral to Neurology - Brace - Vitamin B12; Future - TSH; Future - Protein electrophoresis, serum; Future - Folate; Future Weakness Numbness and tingling 69 year old male with RLE weakness and BLE numbness and tingling that was shown to be a severe sensory-motor polyneuropathy/peripheral neuropathy. He has a right foot drop and would benefit from an AFO as he has steppage gait and is at risk of falls. This will help prevent falls and decrease risk of morbidity and mortality. He needs a neuropathy work up. He does not have DM. He reportedly has degenerative disc disc in the lumbar spine. Fortunately with the severity of the neuropathy we can not differentiate out a lumbosacral radiculopathy and it can not be entirely excluded. We may need to do repeat MRI of his lumbar spine but we will get the neuropathy workup first. Have history of diabetes. He does not know a family history of nerve issues however that does not entirely rule it out. He needs to be exercising regularly. This does not follow the pattern or time line of [place] syndrome. Plan: Lab work for neuropathy AFO for the right foot drop, to prevent falls and reduce the risk of falls and morbidity and mortality for a lifetime Regular exercise Watch the progression and decide on The diagnosis was all discussed with the patient. All questions were answered and they agreed with the treatment plan. Patient will call if there are any new issues or questions. Pt has been fully educated on their diagnosis, treatment options, follow up plan, and return instructions Return to clinic: 2 months documented in this encounter [facility] 04-11-2024 History of Present illness Narrative Images from the original note were not included. HISTORY OF PRESENT ILLNESS: Tay Allison is an 69 y.o. @ male. Chief complaint RT foot/toe pain New problem: RT 5th toe He notes his toes curl and go numb at HS, he was manually straightening his 5th toe and he felt it snap on 04/06 (5 days ago). Admits bruising and discomfort. Pain when walking. He has been taping his toes. Admits limping. Has taken IBU once before golf. MEDICATION: Current Outpatient Medications on File Prior to Visit Medication Sig Dispense Refill buPROPion SR (Wellbutrin SR) 150 MG 12 hr tablet TAKE 1 TABLET DAILY 100 tablet 3 dicyclomine (Bentyl) 10 MG capsule TAKE 1 CAPSULE THREE TIMES A DAY 270 capsule 0 irbesartan (Avapro) 150 MG tablet TAKE 1 TABLET DAILY 90 tablet 0 omeprazole (PriLOSEC) [address] capsule TAKE 1 CAPSULE DAILY 90 capsule 0 tamsulosin (Flomax) 0.4 MG 24 hr capsule TAKE 2 CAPSULES ONCE DAILY 180 capsule 0 No current facility-administered medications on file prior to visit. MEDICAL HISTORY: Past Medical History: Diagnosis Date Actinic keratosis Arthritis Basal cell carcinoma BPH (benign prostatic hyperplasia) Bursitis of hip Chest pain 2011 CTS (carpal tunnel syndrome) Diverticulosis 2010 Drop foot gait Fracture of hand Hypertension ([facility]) IBS (irritable bowel syndrome) 2011 Lumbosacral disc disease Medial collateral ligament sprain of knee [place]-Schlatter's disease Renal disease Rotator cuff syndrome Tear of meniscus of knee Tendinitis of knee UC (ulcerative colitis) ([facility]) 2011 ALLERGIES: Allergies Allergen Reactions Penicillins Anaphylaxis, Rash, Swelling and Unknown Penicillin V Unknown VITALS: Visit Vitals Smoking Status Former PHYSICAL EXAM: Ortho Exam RIGHT FOOT Tenderness DIP little toe Redness over little toe Foot drop Bruising and ecchymosis web space 2nd,3rd, 4th and 5th Full WB with tennis shoe RT EHL is 0/5, DF 3/5 LT EHL 3/5 IMAGING: XR foot 3+ views right Imaging Result: April 11, 2024 x-rays AP lateral and oblique of the right foot demonstrate intact cortices. No definitive fractures detected. No areas of lysis or lytic appearance. Impression: No acute findings on x-rays of the right foot Leon Grace D.O. ASSESSMENT: ICD-10-CM 1. Foot pain, right M79.671 XR foot 3+ views right 2. Foot drop, right foot M21.371 3. Sprain of fifth toe of right foot, initial encounter S93.504A 4. Right foot drop M21.371 PLAN: I explained the xrays, diagnosis and reviewed treatment options. I answered all of the patient's questions. He will keep his appointment with Dr Delgado. Also discussed refer to podiatry for AFO. He will contact us if wants the referral. Activities as tolerated, follow up as needed. Dr. Grace obtained history and examined the patient, I am acting as scribe for Dr. Grace/beck I did advise the patient that I am leaving my current practice to practice in another state but my colleagues are willing to see him if he has any problems or concerns or if he desires a referral to another tissue specialist we would be happy to make referral, he states he would like to continue his care here. Mary Ellen Grace D.O. documented in this encounter [facility] 04-05-2024 History of Present illness Narrative Associated Order(s): L Inj/Asp: L greater trochanteric bursa Post-Procedure Diagnose(s): Trochanteric bursitis of left hip HISTORY OF PRESENT ILLNESS: Tay Allison is an 69 y.o. @ male. Follow up LT hip s/p bursa injection LT hip: 4 months s/p hip bursa injx 11/23/2023 with 100% improvement until 10 days ago. NKI. Left hip pain intermittently for 13 years (2010) Lateral hip pain which comes and goes. Denies radiation. Worse with a lot of walking and at night. Occas wakes him up at night. Denies pain at rest. Pain at worst 6/10 with a lot of walking it will be a constant dull ache. Notes he has constant N/T in both legs from the knee down, he is seeing a neurologist for this and has had this for years. Some discomfort after prolonged sitting with the first few steps but passes quickly. Able to cross LT leg or RT without issue. Taking IBU before golf, uses voltaren gel occas. Treatment(s) include(d): TYL, ice, rest, depo medrol injx hip bursa 09/05/18, 09/19/18, XR [facility] 10/2018 voltaren gel, tramadol, IBU, hip bursa depo injx 11/23/23 MEDICATION: Current Outpatient Medications on File Prior to Visit Medication Sig Dispense Refill buPROPion SR (Wellbutrin SR) 150 MG 12 hr tablet TAKE 1 TABLET DAILY 100 tablet 3 dicyclomine (Bentyl) 10 MG capsule TAKE 1 CAPSULE THREE TIMES A DAY 270 capsule 0 irbesartan (Avapro) 150 MG tablet TAKE 1 TABLET DAILY 90 tablet 0 omeprazole (PriLOSEC) [address] capsule TAKE 1 CAPSULE DAILY 90 capsule 0 tamsulosin (Flomax) 0.4 MG 24 hr capsule TAKE 2 CAPSULES ONCE DAILY 180 capsule 0 No current facility-administered medications on file prior to visit. MEDICAL HISTORY: Past Medical History: Diagnosis Date Actinic keratosis Arthritis Basal cell carcinoma BPH (benign prostatic hyperplasia) Bursitis of hip Chest pain 2011 CTS (carpal tunnel syndrome) Diverticulosis 2009 Drop foot gait Fracture of hand Hypertension ([facility]) IBS (irritable bowel syndrome) 2010 Lumbosacral disc disease Medial collateral ligament sprain of knee [place]-Schlatter's disease Renal disease Rotator cuff syndrome Tear of meniscus of knee Tendinitis of knee UC (ulcerative colitis) ([facility]) 2011 ALLERGIES: Allergies Allergen Reactions Penicillins Anaphylaxis, Rash, Swelling and Unknown Penicillin V Unknown VITALS: Visit Vitals Smoking Status Former PHYSICAL EXAM: Ortho Exam Hip Musculoskeletal Exam Gait Limp: left Inspection Left Erythema: none Ecchymosis: none Edema: none Palpation Left Tenderness: present Greater trochanteric region pain: moderate Range of Motion Left Active ROM: normal. L Inj/Asp: L greater trochanteric bursa on 04/05/2024 8:21 AM Indications: pain Details: 20 G needle, lateral approach Medications: 40 mg methylPREDNISolone acetate 40 MG/ML Consent was given by the patient. Immediately prior to procedure a time out was called to verify the correct patient, procedure, equipment, administrative support assistant and site/side marked as required. Patient was prepped and draped in the usual sterile fashion. ASSESSMENT: ICD-10-CM 1. Left hip pain M25.552 2. Trochanteric bursitis of left hip M70.62 Discussion of options, pt notes he would like an injection, side effects of bleeding and infection discussed, would like to proceed with the injection, using aspectic technique 40 mg of depo medrol was injected into the left hip greater trochanter, pt tolerated well, bandaid applied, may do activities as tolerated, f/u prn, discussed ice in addition documented in this encounter [facility] 03-24-2024 Telephone encounter Note Called and discusssed with Tay. Will refer to Neurology. [facility] 03-24-2024 Miscellaneous Notes Called and discusssed with Tay. Will refer to Neurology. Patient came in asking about the results for this is concerned because its been about a month and wants to know what is going on if he could get a call about his results and the next steps. Pt called requesting results and what next steps are. Results are in chart. Lspine xray and emg documented in this encounter [facility] 03-23-2024 Telephone encounter Note Patient came in asking about the results for this is concerned because its been about a month and wants to know what is going on if he could get a call about his results and the next steps. [facility] 03-21-2024 Telephone encounter Note Pt called requesting results and what next steps are. [facility] Work Phone: 02-25-2024 Telephone encounter Note Results are in chart. [facility] 02-23-2024 History of Present illness Narrative Images from the original note were not included. Reason for Appointment: EMG Patient: Tay Allison : 1955 EMG Computer: [employer] Referring Physician: Dr. Lucio Malik EMG: BLE bankruptcy processor: Babar Jewell RT(R) Office Location: [place] Reason for EMG: c/o numbness/tingling in bilateral lower legs/feet R>L, drop foot on right. Hx of surgery to bilateral knees. No hx of DM. Taking ASA. Comments: Procedure was explained to the patient & who expressed understanding. Patient appeared to have tolerated the test well despite some discomfort due to the nature of the test. documented in this encounter [facility] 02-09-2024 Telephone encounter Note Lspine xray and emg [facility] [place] 02-09-2024 History of Present illness Narrative Images from the original note were not included. Subjective Patient ID: Tay Allison is a 69 y.o. male who presents for Numbness. Pt states he has had paresthesias in right lower leg and right foot x 2 years Noticed same symptoms starting in left lower leg and left foot x 1 year-worsening in last 4 months Has numbness/tingling Denies pain Pt believes he may be developing drop foot on right side Neuropathy Current Outpatient Medications on File Prior to Visit Medication Sig Dispense Refill buPROPion SR (Wellbutrin SR) 150 MG 12 hr tablet TAKE 1 TABLET DAILY 100 tablet 3 dicyclomine (Bentyl) 10 MG capsule TAKE 1 CAPSULE THREE TIMES A DAY 270 capsule 0 irbesartan (Avapro) 150 MG tablet TAKE 1 TABLET DAILY 90 tablet 0 omeprazole (PriLOSEC) [address] capsule TAKE 1 CAPSULE DAILY 90 capsule 0 tamsulosin (Flomax) 0.4 MG 24 hr capsule TAKE 2 CAPSULES ONCE DAILY 180 capsule 0 [DISCONTINUED] dicyclomine (Bentyl) 10 MG capsule TAKE 1 CAPSULE THREE TIMES A DAY 270 capsule 3 [DISCONTINUED] irbesartan (Avapro) 150 MG tablet TAKE 1 TABLET DAILY 100 tablet 4 [DISCONTINUED] omeprazole (PriLOSEC) [address] capsule TAKE 1 CAPSULE DAILY 100 capsule 4 [DISCONTINUED] tamsulosin (Flomax) 0.4 MG 24 hr capsule TAKE 2 CAPSULES ONCE DAILY 180 capsule 3 No current facility-administered medications on file prior to visit. I have reviewed and reconciled the history and medication list with the patient today. Allergies Allergen Reactions Penicillins Anaphylaxis, Rash, Swelling and Unknown Penicillin V Unknown Social History Tobacco Use Smoking status: Former Types: Pipe Quit date: 05/31/1989 Years since quittin.7 Smokeless tobacco: Former Types: Chew Quit date: 12/01/1998 Substance Use Topics Alcohol use: Yes Alcohol/week: 8.0 standard drinks of alcohol Types: 5 Cans of beer, 3 Shots of liquor per week Comment: caffeine: coffee, soda Drug use: Never Family History Problem Relation Name Age of Onset Hypertension Mother Cancer Father Avi Allison Prostate Depression Father Avi Allison Hypertension Father Avi Allison Melanoma Neg Hx Past Medical History: Diagnosis Date Actinic keratosis Arthritis Basal cell carcinoma BPH (benign prostatic hyperplasia) Bursitis of hip Chest pain 2011 CTS (carpal tunnel syndrome) Diverticulosis 2009 Drop foot gait Fracture of hand Hypertension (CMS/HCC) IBS (irritable bowel syndrome) 2010 Lumbosacral disc disease Medial collateral ligament sprain of knee [place]-Schlatter's disease Renal disease Rotator cuff syndrome Tear of meniscus of knee Tendinitis of knee UC (ulcerative colitis) (CMS/HCC) 2010 Past Surgical History: Procedure Laterality Date CARPAL TUNNEL RELEASE Bilateral COLONOSCOPY 2016 COLONOSCOPY W/ BIOPSIES 2009 Diverticulosis COLONOSCOPY W/ BIOPSIES 2010 Colitis EGD 07/2015 ESOPHAGITIS KNEE ARTHROPLASTY KNEE SURGERY Bilateral Artroscopy left x 3 and right OTHER SURGICAL HISTORY :Nuc Med Leland Perf Scan w/Stress Imaging, Wall Motion Analysis & Ejection Fraction; Disease:Chest Pain PARTIAL KNEE ARTHROPLASTY 01/17/2020 Dr Grace ROTATOR CUFF REPAIR Right 01/15/2021 with implant and Distal Clavicle Resection - Dr. Grace TONSILLECTOMY 1957 VASECTOMY 1982 Visit Vitals BP 132/74 Pulse 76 Ht 5' 11 Wt 225 lb SpO2 97% BMI 31.38 kg/m Smoking Status Former BSA 2.26 m Review of Systems Neurological: Positive for numbness. Objective Physical Exam Neurological: Sensory: Sensory deficit present. Motor: Weakness present. Gait: Gait abnormal. Deep Tendon Reflexes: Reflex Scores: Patellar reflexes are 1+ on the right side and 2+ on the left side. Achilles reflexes are 0 on the right side and 0 on the left side. Comments: Loss of sensation RLE L4,L5 dermatomes; Great Toe will not dorsiflex, mild foot drop. Loss of sensation LLE L4 dermatome, motor intact Assessment/Plan Diagnoses and all orders for this visit: Subacute right lumbar radiculopathy - XR lumbar spine 2 or 3 views; Future - EMG AND NERVE CONDUCTION STUDY; Future - Call after tests run, will likely need MRI and referral to Dr Grace. Spondylolisthesis of lumbar region - XR lumbar spine 2 or 3 views; Future - EMG AND NERVE CONDUCTION STUDY; Future Follow up for TBD. documented in this encounter [facility] 02-01-2024 History of Present illness Narrative Images from the original note were not included. HISTORY OF PRESENT ILLNESS: Tay Allison is an 68 y.o. @ male. Follow up LT uni knee Left knee: 4 years s/p (DOS 01/17/20) LT uni knee. Walking well unassisted. He notes some tenderness when he kneels during yoga. Denies pain during other daily activities. Not taking any pain meds. Admits numbness around incision. Denies any issues. Pt is pleased with the outcome of surgery. MEDICATION: Current Outpatient Medications on File Prior to Visit Medication Sig Dispense Refill buPROPion SR (Wellbutrin SR) 150 MG 12 hr tablet TAKE 1 TABLET DAILY 100 tablet 3 dicyclomine (Bentyl) 10 MG capsule TAKE 1 CAPSULE THREE TIMES A DAY 270 capsule 3 irbesartan (Avapro) 150 MG tablet TAKE 1 TABLET DAILY 100 tablet 4 omeprazole (PriLOSEC) [address] capsule TAKE 1 CAPSULE DAILY 100 capsule 4 tamsulosin (Flomax) 0.4 MG 24 hr capsule TAKE 2 CAPSULES ONCE DAILY 180 capsule 3 No current facility-administered medications on file prior to visit. MEDICAL HISTORY: Past Medical History: Diagnosis Date Actinic keratosis Arthritis Basal cell carcinoma BPH (benign prostatic hyperplasia) Bursitis of hip Chest pain 2011 CTS (carpal tunnel syndrome) Diverticulosis 2009 Drop foot gait Fracture of hand Hypertension ([facility]) IBS (irritable bowel syndrome) 2010 Lumbosacral disc disease Medial collateral ligament sprain of knee [place]Schlatter's disease Renal disease Rotator cuff syndrome Tear of meniscus of knee Tendinitis of knee UC (ulcerative colitis) ([facility]) 2010 ALLERGIES: Allergies Allergen Reactions Penicillins Anaphylaxis, Rash, Swelling and Unknown Penicillin V Unknown VITALS: Visit Vitals Smoking Status Former PHYSICAL EXAM: Ortho Exam LEFT KNEE Full ROM No instability Non tender IMAGING: XR knee 1 or 2 views left Imaging Result: February 01, 2024 x-rays AP weight-bearing bilateral knees and lateral of the left knee demonstrate medial compartment knee replacement on left side in good position alignment without signs of loosening fracture or failure. There is narrowing of the medial compartment of the right knee. Impression: Stable appearance of left knee partial replacement and underlying arthritis of the right knee Leon Grace D.O. ASSESSMENT: ICD-10-CM 1. Primary osteoarthritis of left knee M17.12 XR knee 1 or 2 views left 2. Status post left unicompartmental knee replacement Z96.652 PLAN: Follow up in one year with xrays, any issues/concerns follow up sooner. Dr. Grace obtained history and examined the patient, I am acting as scribe for Dr. Grace/beck Grace D.O. documented in this encounter [facility] 12-08-2023 Hospital Discharge instructions Patient Education 12/08/2023 08:23:37 Prostate Cancer Screening Prostate Cancer Screening Prostate cancer screening is testing that is done to check for the presence of prostate cancer in men. The prostate gland is a walnut-sized gland that is located below the bladder and in front of the rectum in males. The function of the prostate is to add fluid to semen during ejaculation. Prostate cancer is one of the most common types of cancer in men. Who should have prostate cancer screening? Screening recommendations vary based on age and other risk factors, as well as between the professional organizations who make the recommendations. In general, screening is recommended if: You are age 50 to 70 and have an average risk for prostate cancer. You should talk with your health care provider about your need for screening and how often screening should be done. Because most prostate cancers are slow growing and will not cause , screening in this age group is generally reserved for men who have a 10- to 15-year life expectancy. You are younger than age 50, and you have these risk factors: ?Having a father, brother, or uncle who has been diagnosed with prostate cancer. The risk is higher if your family member's cancer occurred at an early age or if you have multiple family members with prostate cancer at an early age. ?Being a male who is Black or is of [place] or sub-Saharan descent. In general, screening is not recommended if: You are younger than age 40. You are between the ages of 40 and 49 and you have no risk factors. You are 70 years of age or older. At this age, the risks that screening can cause are greater than the benefits that it may provide. If you are at high risk for prostate cancer, your health care provider may recommend that you have screenings more often or that you start screening at a younger age. How is screening for prostate cancer done? The recommended prostate cancer screening test is a blood test called the prostate-specific antigen (PSA) test. PSA is a protein that is made in the prostate. As you age, your prostate naturally produces more PSA. Abnormally high PSA levels may be caused by: Prostate cancer. An enlarged prostate that is not caused by cancer (benign prostatic hyperplasia, or BPH). This condition is very common in older men. A prostate gland infection (prostatitis) or urinary tract infection. Certain medicines such as male hormones (like testosterone) or other medicines that raise testosterone levels. A rectal exam may be done as part of prostate cancer screening to help provide information about the size of your prostate gland. When a rectal exam is performed, it should be done after the PSA level is drawn to avoid any effect on the results. Depending on the PSA results, you may need more tests, such as: A physical exam to check the size of your prostate gland, if not done as part of screening. Blood and imaging tests. A procedure to remove tissue samples from your prostate gland for testing (biopsy). This is the only way to know for certain if you have prostate cancer. What are the benefits of prostate cancer screening? Screening can help to identify cancer at an early stage, before symptoms start and when the cancer can be treated more easily. There is a small chance that screening may lower your risk of dying from prostate cancer. The chance is small because prostate cancer is a slow-growing cancer, and most men with prostate cancer from a different cause. What are the risks of prostate cancer screening? The main risk of prostate cancer screening is diagnosing and treating prostate cancer that would never have caused any symptoms or problems. This is called overdiagnosisand overtreatment. PSA screening cannot tell you if your PSA is high due to cancer or a different cause. A prostate biopsy is the only procedure to diagnose prostate cancer. Even the results of a biopsy may not tell you if your cancer needs to be treated. Slow-growing prostate cancer may not need any treatment other than monitoring, so diagnosing and treating it may cause unnecessary stress or other side effects. Questions to ask your health care provider When should I start prostate cancer screening? What is my risk for prostate cancer? How often do I need screening? What type of screening tests do I need? How do I get my test results? What do my results mean? Do I need treatment? Where to find more information The [place] [employer]: www.cancer.org [place] [employer]: www.auanet.org Contact a health care provider if: You have difficulty urinating. You have pain when you urinate or ejaculate. You have blood in your urine or semen. You have pain in your back or in the area of your prostate. Summary Prostate cancer is a common type of cancer in men. The prostate gland is located below the bladder and in front of the rectum. This gland adds fluid to semen during ejaculation. Prostate cancer screening may identify cancer at an early stage, when the cancer can be treated more easily and is less likely to have spread to other areas of the body. The prostate-specific antigen (PSA) test is the recommended screening test for prostate cancer, but it has associated risks. Discuss the risks and benefits of prostate cancer screening with your health care provider. If you are age 70 or older, the risks that screening can cause are greater than the benefits that it may provide. This information is not intended to replace advice given to you by your health care provider. Make sure you discuss any questions you have with your health care provider. Document Revised: 11/10/2021 Document Reviewed: 11/10/2021 [employer] Patient Education 2022 [employer]. Follow Up Care 04/28/2023 10:02:26 With:Lorenzo WOODRUFF, Negrita Hdz URL, URO Address: [address] [place] [phone] When: Unknown Comments:6 mos w/ PSA FT [facility] 04-28-2023 Hospital Discharge instructions Patient Education 04/28/2023 10:01:10 Prostate Cancer Screening Prostate Cancer Screening Prostate cancer screening is testing that is done to check for the presence of prostate cancer in men. The prostate gland is a walnut-sized gland that is located below the bladder and in front of the rectum in males. The function of the prostate is to add fluid to semen during ejaculation. Prostate cancer is one of the most common types of cancer in men. Who should have prostate cancer screening? Screening recommendations vary based on age and other risk factors, as well as between the professional organizations who make the recommendations. In general, screening is recommended if: You are age 50 to 70 and have an average risk for prostate cancer. You should talk with your health care provider about your need for screening and how often screening should be done. Because most prostate cancers are slow growing and will not cause , screening in this age group is generally reserved for men who have a 10- to 15-year life expectancy. You are younger than age 50, and you have these risk factors: ?Having a father, brother, or uncle who has been diagnosed with prostate cancer. The risk is higher if your family member's cancer occurred at an early age or if you have multiple family members with prostate cancer at an early age. ?Being a male who is Black or is of [place] or sub-Saharan descent. In general, screening is not recommended if: You are younger than age 40. You are between the ages of 40 and 49 and you have no risk factors. You are 70 years of age or older. At this age, the risks that screening can cause are greater than the benefits that it may provide. If you are at high risk for prostate cancer, your health care provider may recommend that you have screenings more often or that you start screening at a younger age. How is screening for prostate cancer done? The recommended prostate cancer screening test is a blood test called the prostate-specific antigen (PSA) test. PSA is a protein that is made in the prostate. As you age, your prostate naturally produces more PSA. Abnormally high PSA levels may be caused by: Prostate cancer. An enlarged prostate that is not caused by cancer (benign prostatic hyperplasia, or BPH). This condition is very common in older men. A prostate gland infection (prostatitis) or urinary tract infection. Certain medicines such as male hormones (like testosterone) or other medicines that raise testosterone levels. A rectal exam may be done as part of prostate cancer screening to help provide information about the size of your prostate gland. When a rectal exam is performed, it should be done after the PSA level is drawn to avoid any effect on the results. Depending on the PSA results, you may need more tests, such as: A physical exam to check the size of your prostate gland, if not done as part of screening. Blood and imaging tests. A procedure to remove tissue samples from your prostate gland for testing (biopsy). This is the only way to know for certain if you have prostate cancer. What are the benefits of prostate cancer screening? Screening can help to identify cancer at an early stage, before symptoms start and when the cancer can be treated more easily. There is a small chance that screening may lower your risk of dying from prostate cancer. The chance is small because prostate cancer is a slow-growing cancer, and most men with prostate cancer from a different cause. What are the risks of prostate cancer screening? The main risk of prostate cancer screening is diagnosing and treating prostate cancer that would never have caused any symptoms or problems. This is called overdiagnosisand overtreatment. PSA screening cannot tell you if your PSA is high due to cancer or a different cause. A prostate biopsy is the only procedure to diagnose prostate cancer. Even the results of a biopsy may not tell you if your cancer needs to be treated. Slow-growing prostate cancer may not need any treatment other than monitoring, so diagnosing and treating it may cause unnecessary stress or other side effects. Questions to ask your health care provider When should I start prostate cancer screening? What is my risk for prostate cancer? How often do I need screening? What type of screening tests do I need? How do I get my test results? What do my results mean? Do I need treatment? Where to find more information The [place] [employer]: www.cancer.org [place] [employer]: www.auanet.org Contact a health care provider if: You have difficulty urinating. You have pain when you urinate or ejaculate. You have blood in your urine or semen. You have pain in your back or in the area of your prostate. Summary Prostate cancer is a common type of cancer in men. The prostate gland is located below the bladder and in front of the rectum. This gland adds fluid to semen during ejaculation. Prostate cancer screening may identify cancer at an early stage, when the cancer can be treated more easily and is less likely to have spread to other areas of the body. The prostate-specific antigen (PSA) test is the recommended screening test for prostate cancer, but it has associated risks. Discuss the risks and benefits of prostate cancer screening with your health care provider. If you are age 70 or older, the risks that screening can cause are greater than the benefits that it may provide. This information is not intended to replace advice given to you by your health care provider. Make sure you discuss any questions you have with your health care provider. Document Revised: 11/10/2021 Document Reviewed: 11/10/2021 [employer] Patient Education 2022 [employer]. Follow Up Care 03/30/2023 13:52:41 With:Negrita Ventura MD, URL, URO Address: When:Within 8 Month(s) Comments:w/KVNG [facility] 03-29-2023 Hospital Discharge instructions Patient Education 03/29/2023 08:46:36 Lue - Urolift Post-Op Instructions (CUSTOM) [facility] [place] [place] Post-Operative Instructions for UroLift After your procedure it is normal to have: Gross Hematuria (blood in the urine) You may even notice blood clots in your urine. A small amount of blood may apppear to be a lot of blood in your urine as it is diluted. Restarting your blood thinner, increased activity and heavy lifting could increase the amount of bleeding. The bleeding may be sporadic (off and on) over the next 2-3 weeks. Ensure you are hydrating to assist in flushing the blood to prevent voiding complications. In the event you are unable to void, please reach out to our office. If the office is closed, you will need to report to the local emergency room. Blood in your semen and stool may be present. The blood in your semen is not harmful to you or your partner. This will resolve with time. Frequency/urgency/burning with urination is very common. This is due to irritation from your procedure. These symptoms do not indicate that your procedure was unsuccessful or that there is an infection. Ensure you are hydrating! You may try AZO over the counter as needed for urinary discomfort. Pain/discomfort are normal as well. There has been a non-narcotic prescription sent to your pharmacy. You may alternate this prescription with over the counter Ibuprofen. Your pain and discomfort should improve within a few days. When do I need to call the office? We ask that you reach out to the office if you experience a temperature of 100.4 F or higher, excessive urinary bleeding, symptoms of infection, inability to urinate or uncontrolled pain. If the office is closed, you may need to present to the local emergency department. Hamilton catheter If you have a catheter and will remove it at home, you may do so the next day if urine is clear and no longer red/pink in color. If urine is red, wait until clear to remove the catheter. See attached instructions for removal. Postop UroLift Instructions Complete your antibiotic as instructed. Remain on all your urinary medication until follow up. Take your pain madications and AZO as needed. Resume any blood thinners 48 hour post procedure. Continue to hydrate! Minimize your activity for 72-96 hours post procedure. If you are prescribed Oxybutynin for bladder spasms, you may take this medication every 8 hours as needed. This medication may cause dry mouth/eyes and constipation. Taking an over the counter stool softener and drinking plenty of water will help with side effects. Hamilton Catheter Removal Your healthcare provider has instructed you to remove your Hamilton catheter. This is a thin, flexible tube that allows urine to drain out of your bladder and into a bag. It is important to properly remove your catheter to prevent infection and other complications. If you have any questions about removing the Hamilton catheter, ask your healthcare provider before trying to remove it. Otherwise, follow the instructions on this sheet. Hamilton Catheter The Hamilton catheter is held in place by a small balloon that is filled with water. To remove the catheter, you must first drain the water from the balloon. This is done using a syringe and the balloon port. This is the opening in the catheter that is not attached to the bag. It allows you to get to the balloon. Instructions for Removing the Catheter Follow the directions closely. Note: If the catheter does not come out with gentle pulling, stop and call your healthcare provider right away. Empty the bag of urine if needed. Wash your hands with soap and warm water. Dry them well. Gather your supplies. This includes a syringe that was given to you by your healthcare provider, a wastebasket, and a towel. Put the syringe into the balloon port on the catheter. The syringe fits tightly into the port with a firm push and twist motion. Wait as the water from the balloon empties into the syringe. Depending on how large the balloon is, you may need to repeat this process several times until all of the water is out of the balloon. Once the balloon is emptied, gently pull out the catheter. Put the used catheter in the wastebasket. Throw away the syringe. Use the towel to wipe up any spilled water or urine if needed. Wash your hands again. When to Call Your Healthcare Provider Call the healthcare provider right away if: You have a fever of 100.4 F (38 C) or higher, or as directed by your healthcare provider. You have questions about removing the catheter. The catheter does not come out with gentle pulling. You cannot urinate within 8 hours of removing the catheter. Your belly (abdomen) is painful or bloated You have burning pain with urination that lasts for 24 hours. You see a lot of blood in your urine. Light bleeding for 24 hours is normal. It feels like the bladder is not emptying. Follow Up Care 01/22/2023 10:14:38 With:Negrita Ventura Address: [address] [address]- [phone] Business (1) When: Unknown Comments:Office will call to schedule follow up in 1-2 days for hamilton removal and voiding trial [facility] 03-29-2023 Note [id number] [facility] 01-08-2023 Note [id number]:127 [facility] 01-08-2023 Note [id number]:127 [facility] 01-04-2023 Hospital Discharge instructions Patient Education 01/04/2023 08:42:49 EU - Cystoscopy Discharge Instructions (CUSTOM) Cystoscopy Voiding after the procedure: there may be some pain, burning, urgency, frequency and blood tinged urine following the procedure. These symptoms usually resolve within 2-5 days. Drink the amount of fluid it takes to keep the urine pink to yellow or clear in color. Drinking enough water and fluids will help to ease any discomfort after your procedure. If you are having problems that seem out of the ordinary, please call. If unable to contact your physician and you feel it is an emergency, go to the nearest emergency room or call 911 Diet you may resume your normal diet. Activity you may resume your normal activities Call if you have a fever over 100 degrees. Follow Up Care 11/18/2022 09:03:36 With:Negrita Ventura Address:Unknown When: Unknown Comments:Call for followup appointment to schedule Urolift [facility] 01-04-2023 Note Cystoscopy ? Voiding after the procedure: there may be some pain, burning, urgency, frequency and blood tinged urine following the procedure. These symptoms usually resolve within 2-5 days. Drink the amount of fluid it takes to keep the urine pink to yellow or clear in color. Drinking enough water and fluids will help to ease any discomfort after your procedure. ? If you are having problems that seem out of the ordinary, please call. ? If unable to contact your physician and you feel it is an emergency, go to the nearest emergency room or call 911 ? Diet ? you may resume your normal diet. ? Activity ? you may resume your normal activities ? Call if you have a fever over 100 degrees. [facility] 10-21-2021 Hospital Discharge instructions Patient Education 10/21/2021 08:23:06 Prostate Cancer Screening Prostate Cancer Screening The prostate is a walnut-sized gland that is located below the bladder and in front of the rectum in males. The function of the prostate (prostate gland) is to add fluid to semen during ejaculation. Prostate cancer is the second most common type of cancer in men. A screening test for cancer is a test that is done before cancer symptoms start. Screening can help to identify cancer at an early stage, when the cancer can be treated more easily. The recommended prostate cancer screening test is a blood test called the prostate-specific antigen (PSA) test. PSA is a protein that is made in the prostate. As you age, your prostate naturally produces more PSA. Abnormally high PSA levels may be caused by: Prostate cancer. An enlarged prostate that is not caused by cancer (benign prostatic hyperplasia, BPH). This condition is very common in older men. A prostate gland infection (prostatitis). Medicines to assist with hair growth, such as finasteride. Depending on the PSA results, you may need more tests, such as: A physical exam to check the size of your prostate gland. Blood and imaging tests. A procedure to remove tissue samples from your prostate gland for testing (biopsy). Who should have screening? Screening recommendations vary based on age. If you are younger than age 40, screening is not recommended. If you are age 40 54 and you have no risk factors, screening is not recommended. If you are younger than age 55, ask your health care provider if you need screening if you have one of these risk factors: ?Being of -[place] descent. ?Having a family history of prostate cancer. If you are age 55 69, talk with your health care provider about your need for screening and how often screening should be done. If you are older than age 70, screening is not recommended. This is because the risks that screening can cause are greater than the benefits that it may provide (risks outweigh the benefits). If you are at high risk for prostate cancer, your health care provider may recommend that you have screenings more often or start screening at a younger age. You may be at high risk if you: Are older than age 55. Are -[place]ian. Have a father, brother, or uncle who has been diagnosed with prostate cancer. The risk may be higher if your family member's cancer occurred at an early age. What are the benefits of screening? There is a small chance that screening may lower your risk of dying from prostate cancer. The chance is small because prostate cancer is typically a slow-growing cancer, and most men with prostate cancer from a different cause. What are the risks of screening? The main risk of prostate cancer screening is diagnosing and treating prostate cancer that would never have caused any symptoms or problems (overdiagnosis and overtreatment). PSA screening cannot tell you if your PSA is high due to cancer or a different cause. A prostate biopsy is the only procedure to diagnose prostate cancer. Even the results of a biopsy may not tell you if your cancer needs to be treated. Slow-growing prostate cancer may not need any treatment other than monitoring, so diagnosing and treating it may cause unnecessary stress or other side effects. A prostate biopsy may also cause: Infection or fever. A false negative. This is a result that shows that you do not have prostate cancer when you actually do have prostate cancer. Questions to ask your health care provider When should I start prostate cancer screening? What is my risk for prostate cancer? How often do I need screening? What type of screening tests do I need? How do I get my test results? What do my results mean? Do I need treatment? Contact a health care provider if: You have difficulty urinating. You have pain when you urinate or ejaculate. You have blood in your urine or semen. You have pain in your back or in the area of your prostate. You have trouble getting or maintaining an erection (erectile dysfunction, ED). Summary Prostate cancer is a common type of cancer in men. The prostate (prostate gland) is located below the bladder and in front of the rectum. This gland adds fluid to semen during ejaculation. Prostate cancer screening may identify cancer at an early stage, when the cancer can be treated more easily. The prostate-specific antigen (PSA) test is the recommended screening test for prostate cancer. Discuss the risks and benefits of prostate cancer screening with your health care provider. If you are age 70 or older, screening is likely to lead to more risks than benefits (risks outweigh the benefits). This information is not intended to replace advice given to you by your health care provider. Make sure you discuss any questions you have with your health care provider. Document Released: 02/25/2018 Document Revised: 04/29/2018 Document Reviewed: 02/25/2018 [employer] Patient Education 2020 [employer]. Follow Up Care 10/24/2020 09:04:42 With:Hardy Trujillo MD, Sendy Peñaloza URO Address: [facility] [address], [place] [address]- When: Unknown [facility] Evaluation + Plan note No data available for this section [facility] Evaluation + Plan note Future Appointments Appointment Date:04/28/2023 09:30:00 AM Scheduled Provider:Negrita Ventura MD Location:[facility] Appointment Type:URO Office Visit [facility] Evaluation + Plan note Future Appointments Appointment Date:12/08/2023 08:00:00 AM Scheduled Provider:Negrita Ventura MD Location:[facility] Appointment Type:URO Office Visit Diagnostic Tests PendingPSA Total 04/28/23 [facility] Evaluation + Plan note Future Appointments Appointment Date:06/21/2024 08:00:00 AM Scheduled Provider:Negrita Ventura MD Location:[facility] Appointment Type:URO Office Visit Diagnostic Tests PendingPSA Free & Total 12/08/23 [facility] Evaluation note Diagnosis Polyneuropathy- Primary Unspecified hereditary and idiopathic peripheral neuropathy [facility] Diagnosis Left hip pain- Primary Pain in joint, pelvic region and thigh Trochanteric bursitis of left hip [facility]* Diagnosis Foot pain, right- Primary Pain in soft tissues of limb Foot drop, right foot Sprain of fifth toe of right foot, initial encounter Right foot drop Other acquired deformity of ankle and foot [facility]* Diagnosis Right foot drop- Primary Other acquired deformity of ankle and foot Polyneuropathy Unspecified hereditary and idiopathic peripheral neuropathy Weakness Other malaise and fatigue Numbness and tingling Disturbance of skin sensation [facility] Diagnosis Primary osteoarthritis of left knee- Primary Status post left unicompartmental knee replacement [facility]* Diagnosis Subacute right lumbar radiculopathy- Primary Spondylolisthesis of lumbar region [facility]* Diagnosis Idiopathic peripheral neuropathy- Primary Unspecified hereditary and idiopathic peripheral neuropathy Subacute right lumbar radiculopathy Spondylolisthesis of lumbar region Numbness and tingling Disturbance of skin sensation documented in this encounter [facility] Dis[facility] instructions No data available for this section [facility] progress note No data available for this section [facility] Summary Purpose Family History No Family History Records FoundNo Family History Records Found No data available for this section No data available for this section No data available for this section No Family History Records Found No data available for this section No Family History Records FoundNo Family History Records Found Advance Directives No Advanced Directives Records FoundNo Advanced Directives Records FoundNo Advanced Directives Records FoundNo Advanced Directives Records FoundNo Advanced Directives Records Found Reason for Referral Specialty Diagnoses / Procedures Referred By Contac t Referred To Contact Neurology Diagnoses Subacute right lumbar radiculopathy Spondylolisthesis of lumbar region Procedures EMG AND NERVE CONDUCTION STUDY Lucio Malik MD [address] [address] Referral ID Status Reason Start Date Expiration Date V isits Requested Visits Authorized [id number] Pending Review 02/09/2024 08/07/2024 1 1 Additional Source Comments (unrecognized sect ion and content) No Status Records FoundNo Status Records FoundNo Status Records FoundNo Status Records FoundNo Status Records Found INFORMATION SOURCE (unrecogn ized section and content) DATE CREATED AUTHOR 10/08/2021 [facility] [facility] DATE CREATED AUTHOR AUTHOR'S ORGANIZ ATION 10/31/2021 [facility] dical Specialist DATE CREATED AUTHOR AUTHOR'S ORGANIZ ATION 12/06/2023 Desir Kian [facility] DATE CREATED AUTHOR AUTHOR'S ORGANIZ ATION 04/22/2024 [facility] Specialists EPIC DATE CREATED AUTHOR AUTHOR'S ORGANIZ ATION 04/28/2024 [facility] Patient Care team informatio n (unrecognized section and content) 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 [address] [place] [address] PCP - [employer] 05/31/20 Lucio Malik MD [address] 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 Start Date End Date Lucio Malik MD [address] [place] [address] [place] [address] PCP - [employer] 05/31/20 Lucio Malik MD [address] [place] [address] [place] [address] PCP - General Internal Medicine 10/06/22 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 Start Date End Date Lucio Malik MD [address] [place] [address] [place] [address] PCP - [employer] 05/31/20 Lucio Malik MD [address] [place] [address] [place] [address] PCP - General Internal Medicine 10/06/22 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 Start Date End Date Lucio Malik MD [address] [place] [address] [place] [address] PCP - [employer] 05/31/20 Lucio Malik MD [address] [place] [address] [place] [address] PCP - General Internal Medicine 10/06/22 Christianne Delgado DO [address] [place] [address] Referring Physician Neurology 04/19/24 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 Start Date End Date Lucio Malik MD [address] [place] [address] [place] [address] PCP - [employer] 05/31/20 Lucio Malik MD [address] [place] [address] [place] [address] PCP - General Internal Medicine 10/06/22 Christianne Delgado DO [address] [place] [address] Referring Physician Neurology 04/19/24 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 Start Date End Date Lucio Malik MD [address] [place] [address] [place] [address] PCP - [employer] 05/31/20 Lucio Malik MD [address] [place] [address] [place] [address] PCP - General Internal Medicine 10/06/22 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 02/09/2024 Reason Comments Pain Reason Comments Pain Reason Comments Numbness Specialty Diagnoses / Procedures Referred By Contac t Referred To Contact Neurology Diagnoses Polyneuropathy Procedures GA OFFICE/OUTPATIENT NEW HIGH MDM 60 MINUTES Lucio Malik MD [address] [facility] [address] [place] [address] Phone: tel: fax: Christianne Delgado DO [address] [place] [address] Phone: tel: fax: Referral ID Status Reason Start Date Expiration Date V isits Requested Visits Authorized [id number] Closed Consult and Treat 03/24/2024 09/20/2024 1 1 Reason Comments Follow-up Reason Comments Numbness Specialty Diagnoses / Procedures Referred By Contac t Referred To Contact Neurology Diagnoses Subacute right lumbar radiculopathy Spondylolisthesis of lumbar region Procedures EMG AND NERVE CONDUCTION STUDY Lucio Malik MD [address] [address] Rola Wilkerson MD [address] [place] [address] Referral ID Status Reason Start Date Expiration Date V isits Requested Visits Authorized [id number] Closed Perform Procedure 02/09/2024 08/07/2024 1 1 FOR RECORDS PERTAINING TO PATIENTS WHO ARE OR HAVE BEEN ENROLLED IN A CHEMICAL DEPENDENCY/SUBSTANCEABUSE PROGRAM, SOME INFORMATION MAY BE OMITTED. This clinical summary was aggregated from multiple sources. Caution should be exercised in using it in the provision of clinical care. This summary normalizes information from multiple sources, and as a consequence, information in this document may materially change the coding, format and clinical context of patient data. In addition, data may be omitted in some cases. CLINICAL DECISIONS SHOULD BE BASED ON THE PRIMARY CLINICAL RECORDS. [employer] provides no warranty or guarantee of the accuracy or completeness of information in this document.
[2024-06-03 04:07] LABS: PSA, Free 0.94 ng/mL; Prostate Specific Ag 4.4 ng/mL (0.0-4.0)
== END 2024-06-02 09:18 | disposition home or self-care (01) ==
LOC: LAB 09:19
PROVIDERS: PCP Internal Medicine; Visit Provider Urology
DX: R97.20 Elevated prostate specific antigen [PSA] (principal)
CPT/HCPCS: 36415; 84153; 84154

== ENCOUNTER 2024-10-02 07:01 | Outpatient (OUT) | payer MEDICARE, SELFPAY ==
--- NOTE | 2024-10-02 07:03 | US_ITS ---
The [address] [address] Patient Name: TAY BEAVERS MRN: [id number] date: 1955 Sex: M Assigned Patient Location: [place] Current Patient Location: [place] Accession/Order Number: [id number] Exam Date: 10/02/2024 10:26 Report Date: 10/02/2024 10:27 At the request of: MARILOU BEE Procedure: US aorta Aortic ultrasound Reason for exam: History of smoking Comparison: none Technique: Grayscale, spectral and color Doppler images of the abdominal aorta were obtained. 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 Common iliac arteries appear normal in caliber. Incidental note is made of a right renal cyst. 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 Impression dictated by: Nico Tenorio Jr., D.O. 10/02/2024 10:27 AM Dictation Location: [place] [address] Electronically authenticated by: [id number] Y Date: 10/02/2024 10:27
== END 2024-10-02 07:02 | disposition home or self-care (01) ==
LOC: US 07:01
PROVIDERS: PCP Internal Medicine; Visit Provider Internal Medicine
DX: Z87.891 Personal history of nicotine dependence (principal); I71.40 Abdominal aortic aneurysm, without rupture, unspecified
CPT/HCPCS: 76706